=== PATIENT | female | born 2000 | race Caucasian/White ===

== ENCOUNTER 2024-03-25 14:48 | Outpatient (OUT) | payer OTHER, MEDICAID, SELFPAY | END 2024-03-25 14:49 | disposition home or self-care (01) | LOC: LAB 14:54 | PROVIDERS: Visit Provider Midwife | DX: O26.892 Other specified pregnancy related conditions, second trimester (principal); O09.899 Supervision of other high risk pregnancies, unspecified trimester; Z67.91 Unspecified blood type, Rh negative | CPT/HCPCS: 36415; 86850; 86900; 86901 ==

== ENCOUNTER 2024-03-29 13:02 | Outpatient (RCR) | payer OTHER, MEDICAID, SELFPAY ==
[2024-03-29] MEDS: RHO(D) IMMUNE GLOBULIN 1,500 UNIT SYRINGE 1500 UNIT IM (13:14)
[2024-03-29 13:35] VITALS: BP 116/74; PULSE 84; TEMP 36.8; O2SAT 98
--- NOTE | 2024-03-29 13:37 | PC.NURSE ---
1335 no s/s of rxn post injection, 1338 Released ambulatory
== END 2024-04-19 23:59 | disposition home or self-care (01) ==
LOC: INF 13:02
PROVIDERS: Visit Provider Midwife
DX: O26.893 Other specified pregnancy related conditions, third trimester (principal); Z67.91 Unspecified blood type, Rh negative; Z3A.00 Weeks of gestation of pregnancy not specified
CPT/HCPCS: 96372; J2790

== ENCOUNTER 2024-04-26 15:18 | Observation (INO) | payer OTHER, MEDICAID, SELFPAY ==
[2024-04-26 16:13] LABS: Bilirubin Urine NEGATIVE (NEGATIVE); Blood Urine NEGATIVE (NEGATIVE); Clarity Urine CLEAR (CLEAR); Color Urine YELLOW (YELLOW); Glucose Urine UA NEGATIVE (NEGATIVE); Ketones Urine 40 mg/dL (NEGATIVE); Leukocyte Esterase Urine NEGATIVE (NEGATIVE); Nitrite Urine NEGATIVE (NEGATIVE); Protein Urine NEGATIVE (NEG/TRACE); Specific Gravity Urine 1.025 (1.005-1.025); Urobilinogen Urine 0.2 EU/dL (0.2-1.0); pH Urine 6.5 (5.0-9.0)
[2024-04-26 16:14] LABS: Urine Microscopic Indicated NO
[2024-04-26 16:18] LABS: Amnisure NEGATIVE (NEGATIVE); Internal Control Within Normal Limits
[2024-04-26 16:31] VITALS: BP 117/63; PULSE 92; TEMP 36.9
== END 2024-04-26 16:39 | disposition home or self-care (01) ==
LOC: FBC 15:20
PROVIDERS: Admitting Provider Midwife; Visit Provider Midwife
DX: Z03.71 Encounter for suspected problem with amniotic cavity and membrane ruled out (principal); Z3A.00 Weeks of gestation of pregnancy not specified
CPT/HCPCS: 59025; 81003; 84112; G0378; G0379

== ENCOUNTER 2024-05-13 16:50 | Observation (INO) | payer OTHER, MEDICAID, SELFPAY ==
--- OUTSIDE RECORDS SUMMARY | 2024-05-13 17:14 | XMS_ITS | CCD ---
Author Organization [facility] Care Team Providers Care Cashier Credit Name Role Phone JAGDEEP BORRERO Attending Maria Eugenia CAMPBELLLES, JAGDEEP Consulting JAGDEEP Mckeon Admitting Unavailable Floro CNJennifer, Bright L Unavailable Hortencia Morrison MD Primary Care Provider SAMANTA HUERTA Admitting Unavailable SAMANTA HUERTA Attending Unavailable HORTENCIA MORRISON Primary Care Unavailable FLORO, BRIGHT L Attending Unavailable FLORO, BRIGHT L Attending Unavailable FLORO, BRIGHT L Attending Unavailable FLORO, BRIGHT L Attending Unavailable FLORO, BRIGHT L Referring Unavailable FLORO, BRIGHT L Attending Unavailable FLORO, BRIGHT L Referring Unavailable FLORO, BRIGHT L Attending Unavailable FLORO, BRIGHT L Attending Unavailable FLORO, BRIGHT L Attending Unavailable FLORO, BRIGHT L Referring Unavailable FLORO, BRGIHT L Attending Unavailable FLORO, BRIGHT L Attending Unavailable FLORO, BRIGHT L Attending Unavailable FLORO, BRIGHT L Referring Unavailable Allergies Allergy Classification Reported Allergen(s) Allergy Type Date of Onset Reaction(s) Facility (2 sources) Penicillins; Translations: [PENICILLINS] Drug Intolerance 1 [facility] (1 source) Amoxicillin-Pot Clavulanate Drug Allergy 3 Hives [facility] Medications Current Medications Medication Drug Class(es) Dates Sig (Normalized) Sig (Original) Vit-DSS-Fe Cbn-FA ( AD PO) (1 source) Vit-DSS -Fe Cbn-FA ( AD PO) Take by mouth. 0 Active Vit-Fe Fumarate-FA ( Plus/Iron) 27-1 MG tablet (1 source) Start: 12-04-2023 End: 03-03-2024 take 1 tablet by mouth in the morning Vit-Fe Fumarate-FA ( Plus/Iron) 27-1 MG tablet Indications: examination or test, positive result Take 1 tablet by mouth in the morning. 30 tablet 3 12/04/2023 03/03/2024 Active Problems Active Problems Problem Classification Problem Date Documented Da te Episodic/Chronic Anxiety disorders (1 source) Anxiety; Translations: [Anxiety disorder, unspecified] Onset: 09-18-2023 09-18-2023 Chronic Mood disorders (2 sources) Mixed bipolar affective disorder, mild; Translations: [Bipolar disorder, current episode mixed, mild] Onset: 07-19-2023 07-19-2023 Chronic Other nervous system disorders (1 source) Anosmia; Translations: [ANOSMIA] Onset: 03-04-2021 Episodic Other nervous system disorders (1 source) Parageusia; Translations: [PARAGEUSIA] Onset: 03-04-2021 Episodic Other upper respiratory disease (1 source) Nasal congestion; Translations: [NASAL CONGESTION] Onset: 03-04-2021 Episodic Unclassified (3 sources) CONTACT W/AND (SUSP) EXPOS COVID-19; Translations: [CONTACT W/AND (SUSP) EXPOS COVID-19] Onset: 02-26-2021 Unclassified (1 source) COVID-19; Translations: [COVID-19] Onset: 03-04-2021 Unclassified (1 source) OB Reminders Onset: 11-14-2023 11-14-2023 Past or Other Problems Problem Classification Problem Date Documented Da te Episodic/Chronic Other nervous system disorders (1 source) Loss of taste; Translations: [Parageusia] Onset: 09-18-2023 09-18-2023 Episodic Other nervous system disorders (1 source) Loss of sense of smell; Translations: [Anosmia] Onset: 09-18-2023 09-18-2023 Episodic Viral infection (1 source) Verruca plantaris; Translations: [Plantar wart] Onset: 09-18-2023 09-18-2023 Episodic Results Test Name Value Interpretation Reference Range Facil ity US OB FOLLOW UP TRANSABDOMIN AL APPROACHon 04-08-2024 OB FOLLOW UP TRANSABDOMINAL APPROACH FINDINGS: A single, live intrauterine is present with normal cardiac rate of 131 beats per minute. Normal activity and amniotic fluid volume. Amniotic fluid index is 18 cm. Morphology is grossly normal. The cervix is long and closed, 4.6 cm. The placenta is anterior, not associated with the cervical os. The current sonographic age is 31 weeks and 4 days, based on the following measurements: BPD 8.0 cm (32 weeks, 1 day) Head Circumference 28.6 cm (31 weeks, 3 days) Abdominal Circumference 28.1 cm (32 weeks, 1 day) Femur Length 5.9 cm (30 weeks, 5 days) Presentation Cephalic Placenta Anterior Grade I Weight (g) by Percentile 85.8 % * These measurements result in an estimated date of delivery of June 07, 2024. The current estimated weight is 1812 grams (4 pounds, 0 ounces). IMPRESSION: Single, live intrauterine , current sonographic age of 31 weeks and 4 days, with an estimated date of delivery of June 07, 2024 * Estimated Weight (g) by Percentile is based upon an accurate estimated age based on last menstrual period. TRANSCRIBED BY: ELECTRONICALLY SIGNED BY: Samm Pollard MD Normal Not Available US OB 14+ WEEKS ANATOMY SCAN on 01-25-2024 US OB 14+ WEEKS ANATOMY SCAN FINDINGS: Single live intrauterine . heart rate 141 bpm. Somatic movement identified. Breech position. Anterior grade 0 placenta location. GOVIND 14.28 cm. Cervical length 4.3 cm. Lateral ventricles, posterior fossa, stomach, kidneys, three-vessel cord and cord insertion, urinary bladder, long bones, four-chamber heart, diaphragm, extremities, and cervical, thoracic, and lumbar spine identified. Estimated sonographic gestational age 20 weeks, 3 days. Gestational age by dates, 20 weeks, 1 day by dates. Sonographic estimated date of delivery June 10, 2024. Estimated weight 354 g (61.4% by LMP percentile). BPD 4.75 cm. HC 17.77 cm. AC 15.49 cm. FL 3.28 cm. IMPRESSION: Single live intrauterine with estimated sonographic gestational age 20 weeks, 3 days. Estimated weight 334 g. ELECTRONICALLY SIGNED BY: Mike Bustos MD Normal Not Available US OB < 14 WEEKS EARLYon US OB < 14 WEEKS EARLY This is a summary report. The complete report is available in the patient's medical record. If you cannot access the medical record, please contact the sending organization for a detailed fax or copy. US OB < 14 WEEKS EARLY : 11/01/2023 2:51 PM CLINICAL HISTORY: First trimester. COMPARISON: October 11, 2023 TECHNIQUE: ROUTINE FINDINGS: The uterus measures 10.8 x 7.1 x 5.8 cm. A single intrauterine is seen with heart motion of 153 bpm. The gestational age based on this ultrasound is 8 weeks 0 days. The right ovary measures 3.3 x 2.2 x 1.8 cm. The left ovary measures 3.9 x 2.3 x 2.4 cm. IMPRESSION: A SINGLE INTRAUTERINE IS SEEN WITH HEART MOTION. THE GESTATIONAL AGE IS 8 WEEKS 0 DAYS BASED ON THIS EXAMINATION. THE EXPECTED DUE DATE IS JUNE 12, 2024 ELECTRONICALLY SIGNED BY: DO Theron oMrris Not Available US OB < 14 WEEKS EARLYon US OB < 14 WEEKS EARLY CLINICAL HISTORY: COMPARISON: NONE. TECHNIQUE: Grayscale images and Doppler images transabdominal and endovaginal images of the pelvis were obtained in multiple planes. FINDINGS: The uterus measures 8.8 x 4.9 x 3.9 cm there is fluid in the endometrial cavity measuring 1.2 cm which may correspond to a gestational sac, 4 weeks, 1 day. A 2 mm yolk sac is identified. No pole is identified. There is no free fluid. The right ovary measures 3.1 x 2.5 x 1.8 cm The left ovary measures 3.6 x 2.1 x 2.0 cm Both ovaries demonstrate vascular flow. There are no solid or cystic lesions. IMPRESSION: A gestational age in the yolk sac is identified with an approximate gestational age of 4 weeks, 1 day. No pole is identified. ELECTRONICALLY SIGNED BY: Austin Butler MD Normal Not Available Q - CULTURE,URINE,ROUTINEon 01-21-2022 CULTURE, URINE, ROUTINE SEE NOTE Normal [facility] Ramp Manager Comment on above: Order Comment: [facility] performed at: [employer], [facility], [address] [place] [address], [address] [place] [address], [phone], Commercial Carpet Installer: Finesse Santos MD [facility] Date/Time: [id number] [facility] Results Received Date/Time: [id number] [facility] Reported Date/Time: Result Comment: CULT URE, URINE, ROUTINE Micro Number: [id number] Test Status: Final Specimen Source: Urine Specimen Quality: Adequate Result: No Growth Performed By: #### 6 [id number] #### [facility] Default [address] [place] [address] Basic Metabolic Panelon 12-21 Anion gap [Moles/Vol] 12 mmol/L Normal 12-20 [facility] Comment on above: Result Comment: Effe ctive 11/25/2019 reference range changed. Performed By: #### 1 0165F, TSH reflex FT4, BMP #### [facility] [address] [place] [address] eGFRAA 114 mL/min/1.73m2 Normal > OR = 60 [facility] Comment on above: Performed By: #### 1 0165F, TSH reflex FT4, BMP #### [facility] [address] [place] [address] Order Comment: [facility] performed at: [employer] [facility], [address] [place] [address], [address] [place] [address], [phone], Commercial Carpet Installer: Finesse Santos MD [facility] Date/Time: [facility] Results Received Date/Time: [facility] Reported Date/Time: eGFRNAA 94 mL/min/1.73m2 Normal > OR = 60 [facility] Specialist Comment on above: Performed By: #### 1 0165F, TSH reflex FT4, BMP #### [facility] [address] [place] [address] Order Comment: [facility] performed at: [employer] [facility], [address] [facility], [address] [place] [address], [phone], Commercial Carpet Installer: Finesse Santos MD [facility] Date/Time: [facility] Results Received Date/Time: [facility] Reported Date/Time: Q - BASIC METABOLIC PANEL W/ EGFRon 12-31-2021 BUN/CREA 14 NOT APPLICABLE Normal 6-22 [facility] Comment on above: Order Comment: [facility] performed at: [employer], [employer] [facility], [address] , [address] [place] [address], [phone], Commercial Carpet Installer: Finesse Santos MD [facility] Date/Time: [facility] Results Received Date/Time: [facility] Reported Date/Time: Performed By: #### 1 0165F, TSH reflex FT4, BMP #### [facility] [address] [place] [address] Calcium [Mass/Vol] 9.3 mg/dL Normal 8.9-10.4 [facility] Specialist Comment on above: Order Comment: [facility] performed at: [employer], [facility], [address] , [address] [place] [address], [address] [place] [address], Commercial Carpet Installer: Finesse Santos MD [facility] Date/Time: [facility] Received Date/Time: [facility] Reported Date/Time: Performed By: #### 1 0165F, TSH reflex FT4, BMP #### [facility] [address] [place] [address] Chloride [Moles/Vol] 107 mmol/L Normal 98-110 [facility] Specialist Comment on above: Order Comment: [facility] performed at: [employer], [facility], [address] , [address] [place] [address], [phone], Commercial Carpet Installer: Finesse Santos MD [facility] Date/Time: [facility] Received Date/Time: [facility] Reported Date/Time: Performed By: #### 1 0165F, TSH reflex FT4, BMP #### [facility] [address] [place] [address] CO2 [Moles/Vol] 23 mmol/L Normal 20-32 [facility] Ramp Manager Comment on above: Order Comment: [facility] performed at: [employer], [facility], [address] , [address] [place] [address], [phone], Commercial Carpet Installer: Finesse Santos MD [facility] Date/Time: [facility] Results Received Date/Time: [facility] Reported Date/Time: Performed By: #### 1 0165F, TSH reflex FT4, BMP #### [facility] [address] [place] [address] Creatinine [Mass/Vol] 0.79 mg/dL Normal 0.50-1.00 [facility] Ramp Manager Comment on above: Order Comment: [facility] performed at: [employer], [facility], [address] [place] [address], [address] [place] [address], [address] [place] [address], Commercial Carpet Installer: Finesse Santos MD [facility] Date/Time: [facility] Results Received Date/Time: [facility] Reported Date/Time: Performed By: #### 1 0165F, TSH reflex FT4, BMP #### [facility] [address] [place] [address] Glucose [Mass/Vol] 81 mg/dL Normal 65-99 [facility] Comment on above: Order Comment: [facility] performed at: [employer] [facility], [address] [place] [address], [address] [place] [address], [address] [place] [address], Commercial Carpet Installer: Finesse Santos MD [facility] Date/Time: [facility] Results Received Date/Time: [facility] Reported Date/Time: Result Comment: Fasting reference interval Performed By: #### 1 0165F, TSH reflex FT4, BMP #### [facility] [address] [place] [address] Potassium [Moles/Vol] 4.5 mmol/L Normal 3.8-5.1 [facility] Ramp Manager Comment on above: Order Comment: [facility] performed at: [employer] [facility], [address] [place] [address], [address] [place] [address], [address] [place] [address], Commercial Carpet Installer: Finesse Santos MD [facility] Date/Time: [facility] Results Received Date/Time: [facility] Reported Date/Time: Performed By: #### 1 0165F, TSH reflex FT4, BMP #### [facility] [address] [place] [address] Sodium [Moles/Vol] 137 mmol/L Normal 135-146 [facility] Comment on above: Order Comment: [facility] performed at: [employer], [facility], [facility], [address] [place] [address], [address] [place] [address], Commercial Carpet Installer: Finesse Santos MD [facility] Date/Time: [facility] Results Received Date/Time: [facility] Reported Date/Time: Performed By: #### 1 0165F, TSH reflex FT4, BMP #### [facility] [address] [place] [address] Urea nitrogen [Mass/Vol] 11 mg/dL Normal 7-20 [facility] Comment on above: Order Comment: [facility] performed at: [employer], [facility], [address] [facility], [address] [place] [address], [address] [place] [address], Commercial Carpet Installer: Finesse Santos MD [facility] Date/Time: [facility] Results Received Date/Time: [facility] Reported Date/Time: Performed By: #### 1 0165F, TSH reflex FT4, BMP #### [facility] [address] [place] [address] TSH w/ Reflex to Free T4on 0 12-31-2021 TSH W/REFLEX TO FT4 1.03 mIU/L Normal [facility] Comment on above: Order Comment: [facility] performed at: [employer] [facility], [address] [facility], [address] [place] [address], [address] [place] [address], Commercial Carpet Installer: Finesse Satnos MD [facility] Date/Time: [facility] Results Received Date/Time: [facility] Reported Date/Time: Result Comment: Refe rence Range 1-19 Years 0.50-4.30 Ranges First trimester 0.26-2.66 Second trimester 0.55-2.73 Third trimester 0.43-2.91 Performed By: #### 1 0165F, TSH reflex FT4, BMP #### [facility] [address] [place] [address] Q - CULTURE,URINE,ROUTINEon 12-27-2021 CULTURE, URINE, ROUTINE SEE NOTE Abnormal [facility] Ramp Manager Comment on above: Order Comment: [facility] performed at: [employer], [facility], [address], [address] [place], [phone], Commercial Carpet Installer: Finesse Santos MD [facility] Date/Time: [id number] [facility] Results Received Date/Time: [facility] Reported Date/Time: FASTING: NO Result Comment: CULT URE, URINE, ROUTINE Micro Number: [id number] Test Status: Final Specimen Source: Urine Specimen Quality: Adequate Result: Greater than 100,000 CFU/mL of Escherichia coli E.coli INT KENDRICK AMOX/CLAVULANATE S <=2 AMPICILLIN S <=2 AMP/SULBACTAM S <=2 CEFAZOLIN NR <=4 2 CEFEPIME S <=1 CEFTRIAXONE S <=1 CIPROFLOXACIN S <=0.25 ERTAPENEM S <=0.5 GENTAMICIN S <=1 IMIPENEM S <=0.25 LEVOFLOXACIN S <=0.12 NITROFURANTOIN S <=16 PIP/TAZOBACTAM S <=4 TOBRAMYCIN S <=1 TRIMETHOPRIM/SULFA S <=20 S=Susceptible I=Intermediate R=Resistant * = Not Tested NR = Not Reported NN = See Therapy Comments THERAPY COMMENTS Note 1: For infections other than uncomplicated UTI caused by E. coli, K. pneumoniae or P. mirabilis: Cefazolin is resistant if KENDRICK > or = 8 mcg/mL. (Distinguishing susceptible versus intermediate for isolates with KENDRICK < or = 4 mcg/mL requires additional testing.) Note 2: For uncomplicated UTI caused by E. coli, K. pneumoniae or P. mirabilis: Cefazolin is susceptible if KENDRICK <32 mcg/mL and predicts susceptible to the oral agents cefaclor, cefdinir, cefpodoxime, cefprozil, cefuroxime, cephalexin and loracarbef. Performed By: #### 6 [id number] #### [facility] Default [address] [place] [address] Covid-19 PCR (CVDTB)on Covid-19 PCR DETECTED Abnormal NOT DETECTED [facility] Comment on above: Result Comment: This test is not yet approved or cleared by the [place] FDA. When there are no FDA-approved or cleared tests available, and other criteria are met, FDA can make tests available under an emergency access mechanism called an Emergency Use Authorization (EUA). The EUA for this test is supported by the [place] of Health and Human Service's (HHS's) declaration that circumstances exist to justify the emergency use of in vitro diagnostics for the detection and/or diagnosis of the virus that causes COVID-19. This EUA will remain in effect (meaning this test can be used) for the duration of the COVID-19 declaration justifying emergency of IVDs, unless it is terminated or revoked by FDA (after which the test may no longer be used). Performed By: #### C VDTB #### [facility] [address] [place], [place] [address] Mary Jo Medina Encounters Encounter Date Encounter Type Care Provider Facility Start: 05-06-2024 End: 05-06-2024 ambulatory BRIGHT L FLORO Not Available Start: 04-22-2024 End: 04-22-2024 ambulatory BRIGHT L FLORO Not Available Start: 04-08-2024 End: 04-08-2024 ambulatory BRIGHT L FLORO Not Available Start: 03-21-2024 End: 03-21-2024 ambulatory BRIGHT L FLORO Not Available Start: 02-21-2024 End: 02-21-2024 ambulatory BRIGHT L FLORO Not Available Start: 02-16-2024 End: 02-16-[address] [facility] Start: 02-12-2024 End: 02-12-2024 ambulatory BRIGHT L FLORO Not Available Start: 01-25-2024 End: 01-25-2024 ambulatory BRIGHT L FLORO Not Available Start: 12-28-2023 End: 12-28-2023 ambulatory BRIGHT L FLORO Not Available Start: 12-28-2023 Bamboo flowsheet Bright L Benji ro CNM Work Phone: [facility] Start: 12-28-2023 Bamboo flowsheet Bright L Benji ro CNM Work Phone: [facility] Start: 11-30-2023 End: 11-30-2023 ambulatory BRIGHT L FLORO Not Available Start: 11-01-2023 End: 11-01-2023 ambulatory BRIGHT L FLORO Not Available Start: 11-01-2023 End: 11-01-2023 ambulatory BRIGHT L FLORO Not Available Start: 10-11-2023 End: 10-11-2023 ambulatory BRIGHT L FLORO Not Available Start: 02-26-2021 End: 02-26-2021 Patient encounter procedure [facility] Facility: Plan of Treatment Date Care Activity Detail Author Start: 05-19-2024 Influenza vaccination Influenza Vacc ine (#1) [facility] Comment on above: Postponed from 07/21 (Patient Refused) Start: 12-28-2023 End: 12-28-2023 Patient encounter procedure 12/28/2023 4:30 PM EST Routine [facility] [address] [place] [address] Bright Viveros, CNM [address] [place] [address] Arrived [facility] Comment on above: Arrived Immunizations Immunization Date Immunization Notes Care Provider Fa cility 07-08-2020 meningococcal oligosaccharide (groups A, C, Y and W-135) diphtheria toxoid conjugate vaccine (MCV4O) Bright Mineo CN Work Phone: [facility] 07-20-2018 human papilloma viru s vaccine, quadrivalent Bright Floro CNM Work Phone: [facility] 03-14-2018 human papilloma viru s vaccine, quadrivalent Bright Floro CNM Work Phone: [facility] 01-09-2018 human papilloma viru s vaccine, quadrivalent Bright Mineo CN Work Phone: [facility] 06-14-2017 meningococcal polysaccharide (groups A, C, Y and W-135) diphtheria toxoid conjugate vaccine (MCV4P) [facility] 06-14-2017 meningococcal polysaccharide vaccine (MPSV4) Bright [facility] CN Work Phone: [facility] 07-08-2014 meningococcal polysaccharide (groups A, C, Y and W-135) diphtheria toxoid conjugate vaccine (MCV4P) [facility] Work [facility]: [facility] 07-08-2014 tetanus toxoid, redu fabricio diphtheria toxoid, and acellular pertussis vaccine, adsorbed [facility] Work Phone: [facility] 04-22-2013 varicella virus vaccine [place] rocíosandor Blounto [facility] Work Phone: [facility] 02-26-2008 diphtheria, tetanus toxoids and acellular pertussis vaccine Bright Mineo CN Work Phone: [facility] 02-26-2008 measles, mumps and r ubella virus vaccine Bright Mineo CN Work Phone: [facility] 02-26-2008 poliovirus vaccine, inactivated [facility] Work Phone: [facility] 04-12-2004 diphtheria, tetanus toxoids and acellular pertussis vaccine, unspecified formulation Bright Mineo CN Work Phone: [facility] 01-13-2004 measles, mumps and r ubella virus vaccine Bright Floro CN Work Phone: [facility] 01-13-2004 varicella virus vaccine Ana M rocío Mineo CN Work Phone: [facility] 10-14-2003 haemophilus influenz ae type b vaccine, HbOC conjugate Bright [facility] Work Phone: [facility] 10-14-2003 pneumococcal conjuga te vaccine, 7 valent Bright Floro CNM Work Phone: [facility] 10-14-2003 poliovirus vaccine, inactivated Bright Floro CNM Work Phone: [facility] 07-16-2003 hepatitis B vaccine, pediatric or pediatric/adolescent dosage Bright Floro CNM Work Phone: [facility] 05-27-2003 diphtheria, tetanus toxoids and acellular pertussis vaccine, unspecified formulation Bright Floro CNM Work Phone: [facility] 05-27-2003 haemophilus influenz ae type b vaccine, HbOC conjugate Bright Floro CNM Work Phone: [facility] 05-27-2003 pneumococcal conjuga te vaccine, 7 valent Bright Floro CNM Work Phone: [facility] 02-17-2003 diphtheria, tetanus toxoids and acellular pertussis vaccine, unspecified formulation Bright Floro CNM Work Phone: [facility] 02-17-2003 haemophilus influenz ae type b vaccine, HbOC conjugate Bright Floro CNM Work Phone: [facility] 02-17-2003 pneumococcal conjuga te vaccine, 7 valent Bright Floro CNM Work Phone: [facility] 02-17-2003 poliovirus vaccine, inactivated Bright Floro CNM Work Phone: [facility] 2002 diphtheria, tetanus toxoids and acellular pertussis vaccine, unspecified formulation Bright Floro CNM Work Phone: [facility] 2002 haemophilus influenz ae type b vaccine, HbOC conjugate Bright Floro CNM Work Phone: [facility] 2002 pneumococcal conjuga te vaccine, 7 valent Bright Floro CNM Work Phone: [facility] 2002 poliovirus vaccine, inactivated Bright Floro CNM Work Phone: [facility] 2002 hepatitis B vaccine, pediatric or pediatric/adolescent dosage Bright Floro CNM Work Phone: [facility] Healthcare 2002 hepatitis B vaccine, pediatric or pediatric/adolescent dosage Bright Floro CNM Work Phone: [facility] Healthcare Payers Date Payer Category Payer Medicaid [id number] 2019 Private Health Insurance [facility] [id number] 2019-Present [address] [address] [place] [address] [id number] 2002 Unknown [id number] 2002 Unknown [id number] 2002 Unknown [id number] 2002 Unknown [id number] 2.16.840.1.848873.3.579.2. 1259 2002 Unknown [id number] 2.16.840.1.409857.3.579.2. 1259 2002 Unknown [id number] 2.16.840.1.165227.3.579.2. 1259 2002 Unknown [id number] 2.16.840.1.562063.3.579.2. 1259 2002 Unknown [id number] 2.16.840.1.596870.3.579.2. 1259 2002 Unknown [id number] 2.16.840.1.832731.3.579.2. 1259 2002 Unknown [id number] 2.16.840.1.176041.3.579.2. 1259 2002 Unknown [id number] 2.16.840.1.225199.3.579.2. 1259 2002 Unknown [id number] 2.16.840.1.610387.3.579.2. 1259 2002 Unknown [id number] 2.16.840.1.575836.3.579.2. 1259 2002 Unknown [id number] 2.16.840.1.116615.3.579.2. 1259 2002 Unknown [id number] 2.16.840.1.439641.3.579.2. 1259 2002 Unknown [id number] 2.16.840.1.397365.3.579.2. 1259 2002 Unknown [id number] 2.16.840.1.729401.3.579.2. 1259 1959 Unknown [id number] Social History Date Type Detail Facility Start: 10-11-2023 Tobacco smoking stat [facility] Smokes tobacco daily [facility] History of tobacco use Cigarette Smoker [facility] Start: 10-11-2023 Tobacco use and exposure Smokeless t obacco non-user [facility] Start: 10-11-2023 Alcohol intake Ex-drinker (finding) [facility] Start: 09-18-2023 End: 10-11-2023 Alcohol intake [facility] Start: 09-18-2023 End: 10-11-2023 Tobacco use panel [facility] Start: 05-21-2023 Tobacco Comment *Current Smoker [facility] Start: 05-21-2023 Alcohol Comment Alcohol: 3 or 4 drinks on typical day/monthly or less. Caffeine: 1-2 cups/day coffee [facility] Start: 09-20-2023 [facility] Start: 2002 Sex Assigned At Not on file [facility] Goals Date Patient Goal Desired Activity /State Personal health goal Summary Purpose Family History No Family History Records FoundNo Family History Records FoundNo Family History Records FoundNo Family History Records Found Advance Directives No Advanced Directives Records FoundNo Advanced Directives Records FoundNo Advanced Directives Records FoundNo Advanced Directives Records Found Additional Source Comments INFORMATION SOURCE (unrecogn ized section and content) DATE CREATED AUTHOR 03/05/2021 Juan Alberto Rodriguesue [facility] pital DATE CREATED AUTHOR AUTHOR'S ORGANIZ ATION 01/23/2022 [facility] dical Specialist DATE CREATED AUTHOR AUTHOR'S ORGANIZ ATION 02/17/2024 [facility] DATE CREATED AUTHOR AUTHOR'S ORGANIZ ATION 05/11/2024 [facility] dical Specialists EP[employer] Care Teams (unrecognized sec tion and content) Cashier Credit Relationship Specialty Start Date End Date Hortencia Morrison MD [address] [place] [address] PCP - General Family Medicine 05/24/23 Bright Viveros CNM [address] [place], [place] [id number] Obstetrics and Gynecology 05/24/23 FOR RECORDS PERTAINING TO PATIENTS WHO ARE OR HAVE BEEN ENROLLED IN A CHEMICAL DEPENDENCY/SUBSTANCEABUSE PROGRAM, SOME INFORMATION MAY BE OMITTED. This clinical summary was aggregated from multiple sources. Caution should be exercised in using it in the provision of clinical care. This summary normalizes information from multiple sources, and as a consequence, information in this document may materially change the coding, format and clinical context of patient data. In addition, data may be omitted in some cases. CLINICAL DECISIONS SHOULD BE BASED ON THE PRIMARY CLINICAL RECORDS. [facility] [employer] [facility]. provides no warranty or guarantee of the accuracy or completeness of information in this document.
[2024-05-13 17:22] VITALS: BP 139/85; PULSE 73
[2024-05-13 17:46] VITALS: BP 134/84; PULSE 96
[2024-05-13 18:00] VITALS: BP 137/81; PULSE 82
[2024-05-13 18:14] VITALS: BP 139/82; PULSE 88
--- NOTE | 2024-05-13 19:01 | PC.NURSE ---
voices no further complaints, awaiting plan of care from Alie Viveros, continues to deny headache or spotty vision
--- NOTE | 2024-05-13 19:36 | PC.NURSE ---
Alie Viveros in and talks with pt and family, given dc instructions and work release
== END 2024-05-13 19:37 | disposition home or self-care (01) ==
PROVIDERS: Admitting Provider Midwife; Visit Provider Midwife
DX: O47.03 False labor before 37 completed weeks of gestation, third trimester (principal); Z3A.35 35 weeks gestation of pregnancy
CPT/HCPCS: 59025; 87081; G0378; G0379

== ENCOUNTER 2024-05-20 21:55 | Observation (INO) | payer OTHER, MEDICAID, SELFPAY ==
[2024-05-20] VITALS (9 sets, daily range): BP systolic 146–187; BP diastolic 84–98; PULSE 81–104; TEMP 36.3
--- OUTSIDE RECORDS SUMMARY | 2024-05-20 22:00 | XMS_ITS | CCD ---
Author Organization [facility] Care Team Providers Care Tight Barrel Inspector Name Role Phone JAGDEEP BORRERO Attending Maria Eugenia CAMPBELLLES, JAGDEEP Consulting JAGDEEP Mckeon Admitting Unavailable Floro CNJennifer, Teodora L Unavailable [phone] Hortencia Morrison MD Primary Care Provider SAMANTA HUERTA Admitting Unavailable SAMANTA HUERTA Attending Unavailable HORTENCIA MORRISON Primary Care Unavailable FLORO, TEODORA L Attending Unavailable FLORO, TEODORA L Attending Unavailable FLORO, TEODORA L Attending Unavailable FLORO, TEODORA L Attending Unavailable FLORO, TEODORA L Referring Unavailable FLORO, TEODORA L Attending Unavailable FLORO, TEODORA L Referring Unavailable FLORO, TEODORA L Attending Unavailable FLORO, TEODORA L Attending Unavailable FLORO, TEODORA L Referring Unavailable FLORO, TEODORA L Attending Unavailable FLORO, TEODORA L Attending Unavailable FLORO, TEODORA L Attending Unavailable FLORO, TEODORA L Attending Unavailable FLORO, TEODORA L Attending Unavailable FLORO, TEODORA L Referring Unavailable Allergies Allergy Classification Reported [...] OB FOLLOW UP TRANSABDOMIN AL APPROACHon 04-08-2024 US OB FOLLOW UP TRANSABDOMINAL APPROACH FINDINGS: A [...] 12, 2024 ELECTRONICALLY SIGNED BY: DO Theron Morris Not Available US OB < 14 WEEKS [...] 01-21-2022 CULTURE, URINE, ROUTINE SEE NOTE Normal [facility] Comment on above: Order Comment: [facility] Testing performed at: QPT, [facility], [address] [place] [address], [address] [place] [address], [phone], Cover Seamer: Finesse Santos MD [facility] Collection Date/Time: [id number] [facility] Results Received Date/Time: [id number] [facility] Reported Date/Time: Result Comment: CULT URE, URINE, ROUTINE Micro Number: [id number] Test Status: Final Specimen Source: Urine Specimen Quality: Adequate Result: No Growth Performed By: #### 6 [id number] #### [facility] Default [address] [place] [address] Basic Metabolic Panelon 12-21 Anion gap [Moles/Vol] 12 mmol/L Normal 12-20 [facility] Comment on above: Result Comment: Effe ctive 11/25/2019 reference range changed. Performed By: #### 1 0165F, TSH reflex FT4, BMP #### [facility] Default [address] [place] [address] eGFRAA 114 mL/min/1.73m2 Normal > OR = 60 [facility] Comment on above: Performed By: #### 1 0165F, TSH reflex FT4, BMP #### [facility] Default [address] [place] [address] Order Comment: [facility] performed at: [facility], [address] [facility], [address] [place] [address], [phone], Cover Seamer: Finesse Santos MD [facility] Collection Date/Time: [facility] Results Received Date/Time: [facility] Reported Date/Time: eGFRNAA 94 mL/min/1.73m2 Normal > OR = 60 [facility] Comment on above: Performed By: #### 1 0165F, TSH reflex FT4, BMP #### [facility] Default [address] [place] [address] Order Comment: [facility] performed at: [employer], [facility], [address] [facility], [address] [place] [address], [phone], Cover Seamer: Finesse Santos MD [facility] Collection Date/Time: [facility] Results Received Date/Time: [facility] Reported Date/Time: Q - BASIC METABOLIC PANEL W/ EGFRon 12-31-2021 BUN/CREA 14 NOT APPLICABLE Normal 6-22 [facility] Comment on above: Order Comment: [facility] performed at: [employer], [facility], [address] [facility] , [address] [place] [address], [address] [place] [address], Cover Seamer: Finesse Santos MD [facility] Collection Date/Time: [facility] Results Received Date/Time: [facility] Reported Date/Time: Performed By: #### 1 0165F, TSH reflex FT4, BMP #### [facility] Default [address] [place] [address] Calcium [Mass/Vol] 9.3 mg/dL Normal 8.9-10.4 [facility] Specialist Comment on above: Order Comment: [facility] performed at: [employer], [facility], [address] [facility] , [address] [place] [address], [address] [place] [address], Cover Seamer: Finesse Santos MD [facility] Collection Date/Time: [facility] Results Received Date/Time: [facility] Reported Date/Time: Performed By: #### 1 0165F, TSH reflex FT4, BMP #### [facility] Default [address] [place] [address] Chloride [Moles/Vol] 107 mmol/L Normal 98-110 [facility] Specialist Comment on above: Order Comment: [facility] performed at: [employer], [facility], [address] [facility] , [address] [place] [address], [phone], Cover Seamer: Finesse Santos MD [facility] Collection Date/Time: [facility] Results Received Date/Time: [facility] Reported Date/Time: Performed By: #### 1 0165F, TSH reflex FT4, BMP #### [facility] Default [address] [place] [address] CO2 [Moles/Vol] 23 mmol/L Normal 20-32 [facility] Comment on above: Order Comment: [facility] performed at: [employer], [facility], [address] [facility] , [address] [place] [address], [address] [place] [address], Cover Seamer: Finesse Santos MD [facility] Collection Date/Time: [facility] Results Received Date/Time: [facility] Reported Date/Time: Performed By: #### 1 0165F, TSH reflex FT4, BMP #### [facility] Default [address] [place] [address] Creatinine [Mass/Vol] 0.79 mg/dL Normal 0.50-1.00 [facility] Comment on above: Order Comment: [facility] performed at: [employer], [facility], [address] [place] [address], [address] [place] [address], [address] [place] [address], Cover Seamer: Finesse Santos MD [facility] Collection Date/Time: [facility] Results Received Date/Time: [facility] Reported Date/Time: Performed By: #### 1 0165F, TSH reflex FT4, BMP #### [facility] Default [address] [place] [address] Glucose [Mass/Vol] 81 mg/dL Normal 65-99 [facility] Comment on above: Order Comment: [facility] performed at: [employer], [facility], [address] [place] [address], [address] [place] [address], [address] [place] [address], Cover Seamer: Finesse Santos MD [facility] Collection Date/Time: [facility] Results Received Date/Time: [facility] Reported Date/Time: Result Comment: Fasting reference interval Performed By: #### 1 0165F, TSH reflex FT4, BMP #### [facility] Default [address] [place] [address] Potassium [Moles/Vol] 4.5 mmol/L Normal 3.8-5.1 [facility] Comment on above: Order Comment: [facility] performed at: [employer], [facility], [address] [facility], [address] [place] [address], [address] [place] [address], Cover Seamer: Finesse Santos MD [facility] Collection Date/Time: [facility] Results Received Date/Time: [facility] Reported Date/Time: Performed By: #### 1 0165F, TSH reflex FT4, BMP #### [facility] Default [address] [place] [address] Sodium [Moles/Vol] 137 mmol/L Normal 135-146 [facility] Comment on above: Order Comment: [facility] performed at: [employer], [facility], [address] [facility], [address] [place] [address], [address] [place] [address], Cover Seamer: Finesse Santos MD [facility] Collection Date/Time: [facility] Results Received Date/Time: [facility] Reported Date/Time: Performed By: #### 1 0165F, TSH reflex FT4, BMP #### [facility] Default [address] [place] [address] Urea nitrogen [Mass/Vol] 11 mg/dL Normal 7-20 [facility] Comment on above: Order Comment: [facility] performed at: [facility], [address] [facility], [address] [place] [address], [address] [place] [address], Cover Seamer: Finesse Santos MD [facility] Collection Date/Time: [facility] Results Received Date/Time: [facility] Reported Date/Time: Performed By: #### 1 0165F, TSH reflex FT4, BMP #### [facility] Default [address] [place] [address] TSH w/ Reflex to Free T4on 0 12-31-2021 TSH W/REFLEX TO FT4 1.03 mIU/L Normal [facility] Comment on above: Order Comment: [facility] Testing performed at: [facility], [address] [facility], [address] [place] [address], [address] [place] [address], Cover Seamer: Finesse Santos MD [facility] Collection Date/Time: [facility] Results Received Date/Time: [facility] Reported Date/Time: Result Comment: Refe rence Range 1-19 Years 0.50-4.30 Ranges First trimester 0.26-2.66 Second trimester 0.55-2.73 Third trimester 0.43-2.91 Performed By: #### 1 0165F, TSH reflex FT4, BMP #### [facility] Default [address] [place] [address] Q - CULTURE,URINE,ROUTINEon 12-27-2021 CULTURE, URINE, ROUTINE SEE NOTE Abnormal [facility] Comment on above: Order Comment: [facility] performed at: [employer], [facility], [address] [facility], [address] [place], [address], Cover Seamer: Finesse Santos MD [facility] Collection Date/Time: [id number] [facility] Results Received Date/Time: [facility] Reported Date/Time: FASTING: NO Result Comment: CULT URE, URINE, ROUTINE Micro Number: [id number] Test Status: Final Specimen Source: Urine Specimen [...] 6 304R #### [facility] Default [address] [facility] [place] [address] Covid-19 PCR (CVDTB)on Covid-19 PCR DETECTED Abnormal NOT DETECTED [facility] Comment on above: Result Comment: This test is not yet approved or cleared by the [place] FDA. When there are no FDA-approved or cleared tests available, and other criteria are met, FDA can make tests available under an emergency access mechanism called an Emergency Use Authorization (EUA). The EUA for this test is supported by the [place] of Health and Human Service's (HHS's) declaration [...] used). Performed By: #### C VDTB #### [facility] [address] [address] Mary Jo Medina Encounters Encounter Date Encounter Type Care Provider Facility Start: 05-13-2024 End: 05-13-2024 ambulatory TEODORA L FLORO Not Available Start: 05-06-2024 End: 05-06-2024 ambulatory TEODORA L FLORO Not Available Start: 04-22-2024 End: 04-22-2024 ambulatory TEODORA L FLORO Not Available Start: 04-08-2024 End: 04-08-2024 ambulatory TEODORA L FLORO Not Available Start: 03-21-2024 End: 03-21-2024 ambulatory TEODORA L FLORO Not Available Start: 02-21-2024 End: 02-21-2024 ambulatory TEODORA L FLORO Not Available Start: 02-16-2024 End: 02-16-2024 ambulatory [facility] Start: 02-12-2024 End: 02-12-2024 ambulatory TEODORA L FLORO Not Available Start: 01-25-2024 End: 01-25-2024 ambulatory TEODORA L FLORO Not Available Start: 12-28-2023 End: 12-28-2023 ambulatory TEODORA L FLORO Not Available Start: 12-28-2023 Bamboo flowsheet Teodora L Benji ro CNM Work Phone: [facility] Start: 12-28-2023 Bamboo flowsheet Teodora L Benji ro CNM Work Phone: [facility] Start: 11-30-2023 End: 11-30-2023 ambulatory TEODORA L FLORO Not Available Start: 11-01-2023 End: 11-01-2023 ambulatory TEODORA L FLORO Not Available Start: 11-01-2023 End: 11-01-2023 ambulatory TEODORA L FLORO Not Available Start: 10-11-2023 End: 10-11-2023 ambulatory TEODORA L FLORO Not Available Start: 02-26-2021 End: 02-26-2021 Patient encounter procedure [facility] Facility: Plan of Treatment Date Care Activity Detail Author Start: 05-19-2024 Influenza vaccination Influenza Vacc ine (#1) [facility] Comment on above: Postponed from 07/21 (Patient Refused) Start: 12-28-2023 End: 12-28-2023 Patient encounter procedure 12/28/2023 4:30 PM EST Routine [facility] [address] [place] [address] Teodora Viveros CNM [address] [place] [address] Arrived [facility] Comment on above: Arrived Immunizations Immunization Date Immunization Notes Care Provider Fa cility 07-08-2020 meningococcal oligosaccharide (groups A, C, Y and W-135) diphtheria toxoid conjugate vaccine (MCV4O) Teodora Jackeline [facility] Work Phone: [facility] 07-20-2018 human papilloma viru s vaccine, quadrivalent Teodora Jackeline [facility] Work Phone: [facility] 03-14-2018 human papilloma viru s vaccine, quadrivalent Teodora Floro CNM Work Phone: [facility] 01-09-2018 human papilloma viru s vaccine, quadrivalent Teodora Floro CNM Work Phone: [facility] 06-14-2017 meningococcal polysaccharide (groups A, C, Y and W-135) diphtheria toxoid conjugate vaccine (MCV4P) Teodora Floro CNM Work Phone: [facility] 06-14-2017 meningococcal polysaccharide vaccine (MPSV4) Teodora Floro CNM Work Phone: [facility] 07-08-2014 meningococcal polysaccharide (groups A, C, Y and W-135) diphtheria toxoid conjugate vaccine (MCV4P) Teodora Floro CN Work Phone: [facility] 07-08-2014 tetanus toxoid, redu fabricio diphtheria toxoid, and acellular pertussis vaccine, adsorbed Teodora Floro CNM Work Phone: [facility] 04-22-2013 varicella virus vaccine [place] rocío Floro CN Work Phone: [facility] 02-26-2008 diphtheria, tetanus toxoids and acellular pertussis vaccine Teodora Floro CNM Work Phone: [facility] 02-26-2008 measles, mumps and r ubella virus vaccine Teodora Floro CNM Work Phone: [facility] 02-26-2008 poliovirus vaccine, inactivated Teodora Floro CNM Work Phone: [facility] 04-12-2004 diphtheria, tetanus toxoids and acellular pertussis vaccine, unspecified formulation Teodora Floro CNM Work Phone: [facility] 01-13-2004 measles, mumps and r ubella virus vaccine Teodora Floro CNM Work Phone: [facility] 01-13-2004 varicella virus vaccine [place] rocío Floro CNM Work Phone: [facility] 10-14-2003 haemophilus influenz ae type b vaccine, HbOC conjugate Teodora Floro CNM Work Phone: [facility] 10-14-2003 pneumococcal conjuga te vaccine, 7 valent Teodora Floro CNM Work Phone: [facility] 10-14-2003 poliovirus vaccine, inactivated Teodora Floro CNM Work Phone: [facility] 07-16-2003 hepatitis B vaccine, pediatric or pediatric/adolescent dosage Teodora Floro CNM Work Phone: [facility] 05-27-2003 diphtheria, tetanus toxoids and acellular pertussis vaccine, unspecified formulation Teodora Floro CNM Work Phone: [facility] 05-27-2003 haemophilus influenz ae type b vaccine, HbOC conjugate Teodora Floro CNM Work Phone: [facility] 05-27-2003 pneumococcal conjuga te vaccine, 7 valent Teodora Floro CNM Work Phone: [facility] 02-17-2003 diphtheria, tetanus toxoids and acellular pertussis vaccine, unspecified formulation Teodora Floro CNM Work Phone: [facility] 02-17-2003 haemophilus influenz ae type b vaccine, HbOC conjugate Teodora Floro CNM Work Phone: [facility] 02-17-2003 pneumococcal conjuga te vaccine, 7 valent Teodora Floro CNM Work Phone: [facility] 02-17-2003 poliovirus vaccine, inactivated Teodora Floro CNM Work Phone: [facility] 2002 diphtheria, tetanus toxoids and acellular pertussis vaccine, unspecified formulation Teodora Floro CNM Work Phone: [facility] 2002 haemophilus influenz ae type b vaccine, HbOC conjugate Teodora Floro CNM Work Phone: [facility] 2002 pneumococcal conjuga te vaccine, 7 valent Teodora Floro CNM Work Phone: [facility] 2002 poliovirus vaccine, inactivated Teodora Floro CNM Work Phone: [facility] 2002 hepatitis B vaccine, pediatric or pediatric/adolescent dosage Teodora Mineo CNM Work Phone: [facility] 2002 hepatitis B vaccine, pediatric or pediatric/adolescent dosage Teodora Floro CNM Work Phone: [facility] Payers Date Payer Category Payer Medicaid [id number] [address] [facility] [id number] 2019-Present [address] [address] [place] [address] [id number] 2002 Unknown [id number] 2.16.840.1.324756.3.579.2. 593 2002 Unknown [id number] 2.16.840.1.579561.3.579.2. 1286 2002 Unknown [id number] 2.16.840.1.465064.3.579.2. 1259 2002 Unknown [id number] 2.16.840.1.132168.3.579.2. 1259 2002 Unknown [id number] 2.16.840.1.128679.3.579.2. 1259 2002 Unknown [id number] 2.16.840.1.320084.3.579.2. 1259 2002 Unknown [id number] 2.16.840.1.793286.3.579.2. 1259 2002 Unknown [id number] 2.16.840.1.439583.3.579.2. 1259 2002 Unknown [id number] 2.16.840.1.530326.3.579.2. 1259 2002 Unknown [id number] 2.16.840.1.365375.3.579.2. 1259 2002 Unknown [id number] 2.16.840.1.924975.3.579.2. 9 2002 Unknown [id number] 2.16.840.1.749877.3.579.2. 9 2002 Unknown [id number] 2.16.840.1.256818.3.579.2. 9 2002 Unknown [id number] 2.16.840.1.140978.3.579.2. 9 2002 Unknown [id number] 2.16.840.1.184555.3.579.2. 9 2002 Unknown [id number] 2.16.840.1.278071.3.579.2. 9 2002 Unknown [id number] 2.16.840.1.759457.3.579.2. 9 2002 Unknown [id number] 2.16.840.1.273498.3.579.2. 1259 1959 Unknown [id number] Social History Date Type Detail Facility Start: 10-11-2023 Tobacco smoking stat [facility] Smokes tobacco daily [facility] History of [...] section and content) DATE CREATED AUTHOR 03/05/2021 [facility] DATE CREATED AUTHOR AUTHOR'S ORGANIZ ATION 01/23/2022 [facility] dical Specialist DATE CREATED AUTHOR AUTHOR'S ORGANIZ ATION 02/17/2024 [facility] DATE CREATED AUTHOR AUTHOR'S ORGANIZ ATION 05/18/2024 [facility] dical Specialists [employer] Care Teams (unrecognized sec tion and content) Tight Barrel Inspector Relationship Specialty Start Date End Date Hortencia Morrison MD [address] [place] [address] PCP - General Family Medicine 05/24/23 Teodora Viveros CNM [address] [place] [address] Obstetrics and Gynecology 05/24/23 FOR RECORDS PERTAINING [...] BE BASED ON THE PRIMARY CLINICAL RECORDS. [facility] [employer] [facility]. provides no warranty or guarantee of the accuracy or completeness of information in this document.
[2024-05-20 22:24] LABS: Bilirubin Urine NEGATIVE (NEGATIVE); Blood Urine TRACE-I (NEGATIVE); Clarity Urine CLEAR (CLEAR); Color Urine LT. YELLOW (YELLOW); Glucose Urine UA NEGATIVE (NEGATIVE); Ketones Urine NEGATIVE (NEGATIVE); Leukocyte Esterase Urine NEGATIVE (NEGATIVE); Nitrite Urine NEGATIVE (NEGATIVE); Protein Urine >=300 mg/dL (NEG/TRACE); Urobilinogen Urine 0.2 EU/dL (0.2-1.0)
[2024-05-20 22:30] LABS: Amnisure NEGATIVE (NEGATIVE); Internal Control Within Normal Limits
[2024-05-20 22:33] LABS: Urine Microscopic Indicated YES
[2024-05-20 22:35] LABS: RBC Urine 0-2 #/HPF (0-2); WBC Urine 0-2 #/HPF (NONE SEEN)
[2024-05-20 22:36] LABS: Amorphous Sediment Urine FEW; Bacteria Urine TRACE #/HPF (NONE SEEN); Cast Seen? NONE SEEN #/LPF (NONE SEEN); Crystals Seen? None Seen #/HPF (None Seen); Mucus Urine NONE SEEN (NONE SEEN); Squamous Epithelial Cell Urine MODERATE #/LPF (NONE/RARE); Urine Culture Indicated NO
[2024-05-20 23:18] LABS: Basophils Absolute Auto 0.1 10^3/uL (0.0-0.1); Basophils Percent Auto 0.5 % (0.2-2.0); Eosinophils Absolute Auto 0.1 10^3/uL (0.0-0.7); Eosinophils Percent Auto 1.5 % (0.9-7.0); Hematocrit 30.1 % (36.0-48.0); Hemoglobin 10.6 g/dL (12.0-16.0); Immature Granulocytes Abs Auto 0.23 10^3/uL (0.00-0.03); Immature Granulocytes Pct Auto 2.4 % (0.0-0.5); Lymphocytes Absolute Auto 1.5 10^3/uL (1.2-3.8); Lymphocytes Percent Auto 15.4 % (20.5-60.0); Mean Corpuscular HGB Conc 35.2 g/dL (29.9-35.2); Mean Corpuscular Hemoglobin 33.5 pg (26.7-34.0); Mean Corpuscular Volume 95.3 fL (81.0-99.0); Mean Platelet Volume 9.5 fL (9.5-13.5); Monocytes Absolute Auto 0.8 10^3/uL (0.3-0.8); Monocytes Percent Auto 8.1 % (1.7-12.0); Neutrophils Absolute Auto 6.9 10^3/uL (1.4-6.5); Neutrophils Percent Auto 72.1 % (43.0-75.0); Platelet Count 209 10^3/uL (150-450); Red Blood Count 3.16 10^6/uL (4.20-5.40); Red Cell Distribution Width 13.5 % (11.0-15.0); White Blood Count 9.6 10^3/uL (4.0-11.0)
[2024-05-20 23:20] LABS: Creatinine Urine Random 33.93 mg/dL (20.00-300.00); Total Protein Urine Random 189.9 mg/dL (<=11.9)
[2024-05-20] MEDS: LABETALOL HCL 20 MG/4 ML SYRINGE IVP (23:32)
[2024-05-20 23:33] LABS: Alanine Aminotransferase 16 U/L (14-59); Aspartate Amino Transferase 19 U/L (15-37); Estimated GFR (African America >60 (>=60); Estimated GFR (Non-African Ame >60 (>=60); Uric Acid 3.5 mg/dL (2.6-6.0)
[2024-05-20 23:36] LABS: Alanine Aminotransferase 17 U/L (14-59); Albumin Globulin Ratio 0.6; Albumin Level 2.2 g/dL (3.4-5.0); Alkaline Phosphatase 114 U/L (46-116); Anion Gap 13.3; Aspartate Amino Transferase 20 U/L (15-37); Bilirubin Total 0.5 mg/dL (0.2-1.0); Calcium 8.8 mg/dL (8.5-10.1); Carbon Dioxide 24.5 mmol/L (21.0-32.0); Chloride 104 mmol/L (98-107); Estimated GFR (African America >60 (>=60); Estimated GFR (Non-African Ame >60 (>=60); Globulin 3.9 g/dL; Glucose 93 mg/dL (74-106); Lactate Dehydrogenase 202 U/L (81-234); Potassium 3.8 mmol/L (3.5-5.1); Sodium 138 mmol/L (136-145); Total Protein 6.1 g/dL (6.4-8.2)
[2024-05-20] MEDS: LABETALOL HCL 20 MG/4 ML SYRINGE 40 MG IVP (23:49)
[2024-05-20 23:52] LABS: Partial Thromboplastin Time 26.9 sec (22.3-36.2); Prothrombin Time 9.7 sec (9.0-11.6)
[2024-05-20 23:58] LABS: INR <0.93
[2024-05-20] MEDS: CLINDAMYCIN PHOSPHATE/D5W 900 MG/50 ML PIGGYBACK 100 MG IV (23:58)
[2024-05-21] VITALS (15 sets, daily range): BP systolic 141–157; BP diastolic 74–92; PULSE 88–103; TEMP 36–36.4
[2024-05-21] MEDS: BETAMETHASONE ACE/BETAMETHASONE SOD PHOS 30 MG/5 ML 12 MG IM (00:04)
[2024-05-21] MEDS: MAGNESIUM SULFATE IN WATER 40 GM/1,000 ML IV.SOLN IV (00:27)
[2024-05-21] MEDS: 0.9 % SODIUM CHLORIDE 1,000 ML 75 ML IV (00:27)
[2024-05-21] MEDS: NIFEdipine 30 MG TAB.ER.24 PO (00:44)
[2024-05-21 00:49] LABS: Fibrinogen 537 mg/dL (200-400)
--- NOTE | 2024-05-21 01:33 | P.EN_ITS ---
Event Note Event Note: patient arrived at hospital with c/o i think my water broke. Upon guidance services coordinator, patients blood pressure was 166/91, 187/98. Orders given to RN and can repeat BP in 5 mins and call me back. When she called me back blood pressures were still elevated. I gave orders for IV, labs, to begin magnesium sulfate drip, antibiotics, and Celestone. I told RN i would be on my way in and posibly transfer patient to [facility] due to preeclampsia with severe features. I also spoke with Dr Lux and report given and he agrees with plan of care to call [facility] and transfer patient to [facility] due to preeclampsia and gestational age. When I arrived at hospital, magnesium 6 gm bolus was infusing, antibiotic infusing without difficuly. Plan of care explained to patient and her mother and patient is tearful. support given. Patient does understand the plan of care and does agree to the transfer. 0015 I called [facility] and spoke with M contract associate manager Dr Murphy and she agrees to accept patient as a transfer. Report given to transport team. At this time she gave me an ETA of approximately 3-4:00 am Patient is stable at this time and blood pressure has decreased to 140's/80's Patient also received Procardia XL 30 mg po as per Dr Murphy order.
--- NOTE | 2024-05-21 02:04 | PC.NURSE ---
Pt arrives to [facility] complaining of feeling a large gush of fluid at 5 this evening. Pt continues to state she has felt fluid since initial gush of fluid. Pt denies cxt's, recent sexual intercourse,and vaginal bleeding. Pt denies complications with this and reports vertex position of fetus and anterior placenta; denies abnormalities. Pt also states she hasn't been feeling the best lately; pt cough intermittent and nasal congestion noted. Pt reports active movement. Pt given a urine specimen cup for sample.
== END 2024-05-21 05:10 | disposition short-term general hospital (02) ==
PROVIDERS: Admitting Provider Midwife; PCP Family Medicine; Visit Provider Midwife
DX: O14.13 Severe pre-eclampsia, third trimester (principal); Z3A.36 36 weeks gestation of pregnancy
CPT/HCPCS: 36415; 51702; 59025; 80053; 81001; 82565; 82570; 83615; 84112; 84156; 84450; 84460; 84550; 85025; 85384; 85610; 85730; 96365; 96372; 96375; 96376; G0378; G0379; J0702; J0736; J1290; J3475

== ENCOUNTER 2024-06-13 01:28 | Emergency (ER) | payer OTHER, MEDICAID, SELFPAY ==
[2024-06-13 01:33] VITALS: BP 123/80; PULSE 88; TEMP 36.4; O2SAT 97; BMI 30.9
--- OUTSIDE RECORDS SUMMARY | 2024-06-13 01:45 | XMS_ITS | CCD ---
Author Organization [facility] Care Team Providers Care Terminologist Name Role Phone JAGDEEP BORRERO Attending Unavailable JAGDEEP BORRERO Consulting Unavailable JAGDEEP BORRERO Admitting Unavailable Floro Alie COLLINSerie L Unavailable Hortencia Morrison MD Primary Care Provider SAMANTA HUERTA Admitting Unavailable SAMANTA HUERTA Attending Unavailable HORTENCIA MORRISON. Primary Care Unavailable FABIANVIRGINIA Admitting Unavailable FABIANVIRGINIA Attending Unavailable FLORO, BRIGHT Referring Unavailable HORTENCIA MORRISON Primary Care Unavailable SATNAM MAGALLANES Consulting Unavailable ALTAGRACIA ELIZABETH Referring Unavailable TAMIKOHORTENCIA Primary Care Unavailable FLORO, BRIGHT Referring Unavailable TAMIKOHORTENCIA CASTELLON Primary Care Unavailable FLORO, BRIGHT L Attending Unavailable FLORO, BRIGHT L Attending Unavailable FLORO, BRIGHT L Attending Unavailable FLORO, BRIGHT L Referring Unavailable FLORO, BRIGHT L Attending Unavailable FLORO, BRIGHT L Attending Unavailable FLORO, BRIGHT L Referring Unavailable FLORO, BIRGHT L Attending Unavailable FLORO, BRIGHT L Attending Unavailable FLORO, BRIGHT L Referring Unavailable FLORO, BRIGHT L Attending Unavailable FLORO, BRIGHT L Attending Unavailable FLORO, BRIGHT L Attending Unavailable FLORO, BRIGHT L Attending Unavailable FLORO, BRIGHT L Attending Unavailable FLORO, BRIGHT L Attending Unavailable FLORO, BRIGHT L Referring Unavailable Allergies Allergy Classification Reported Allergen(s) Allergy Type Date of Onset Reaction(s) Facility Penicillins (antibiotic) (1 source) Penicillins; Translations: [PENICILLINS] Drug Allergy 1 [facility] (2 sources) Penicillins; Translations: [PENICILLINS] Drug Intolerance 1 [facility] (1 source) Amoxicillin-Pot Clavulanate Drug Allergy Hives [facility] Medications Current Medications Medication [...] [Anxiety disorder, unspecified] Onset: 09-18-2023 09-18-2023 Chronic Essential hypertension (1 source) Hypertensive disorder Onset: 05-21-2024 Chronic Hypertension complicating ; childbirth and the puerperium (2 sources) Severe pre-eclampsia complicating childbirth; Translations: [Unspecified pre-eclampsia, unspecified trimester] Onset: 05-21-2024 Episodic Mood disorders (2 sources) Mixed bipolar affective disorder, mild; Translations: [Bipolar disorder, current episode mixed, mild] Onset: 07-19-2023 07-19-2023 Chronic Other nervous system disorders (1 source) Anosmia; Translations: [ANOSMIA] Onset: 03-04-2021 Episodic Other nervous system disorders (1 source) Parageusia; Translations: [PARAGEUSIA] Onset: 03-04-2021 Episodic Other screening for suspected conditions (not mental disorders or infectious disease) (1 source) Encounter for other specified screening; Translations: [Encounter for other specified screening] Onset: 05-21-2024 Episodic Other upper respiratory disease (1 source) Nasal congestion; Translations: [NASAL CONGESTION] Onset: 03-04-2021 Episodic Unclassified (3 sources) CONTACT W/AND (SUSP) EXPOS COVID-19; Translations: [CONTACT W/AND (SUSP) EXPOS COVID-19] Onset: 02-26-2021 Unclassified (1 source) COVID-19; Translations: [COVID-19] Onset: 03-04-2021 Unclassified (1 source) OB Reminders Onset: 11-14-2023 11-14-2023 Unclassified (1 source) Severe Features Onset: 05-21-2024 Past or Other Problems Problem Classification Problem [...] Results Test Name Value Interpretation Reference Range Facility CBC AND AUTO DIFFon 05-24-20 Band form neutrophils/100 WBC (Bld) 2.0 % Normal [facility] Comment on above: Performed By: #### C BCA, CMP, HA1C #### [facility] ([id number]) [address], [address] [place] [address] Eosinophils (Bld) [#/Vol] 1.0 10*3/uL High 0.0-0.4 [facility] Comment on above: Performed By: #### Rosales BCA, CMP, HA1C #### [facility] ([id number]) [address], [address] [place] [address] Eosinophils/100 WBC (Bld) 9.0 % Normal [facility] Comment on above: Performed By: #### Rosales BCA, CMP, HA1C #### [facility] ([id number]) [address] [place] [address] Erythrocyte distribution width (RBC) [Ratio] 14.3 % Normal 11.5-15.0 [facility] Comment on above: Performed By: #### Rosales BCA, CMP, HA1C #### [facility] ([id number]) [address], [address] [place] [address] Hematocrit (Bld) [Volume fraction] 24.1 % Low 35-47 [facility] Comment on above: Performed By: #### C TONY CMP, HA1C #### [facility] ([id number]) [address], [address] [place] [address] Hemoglobin (Bld) [Mass/Vol] 8.6 g/dL Low 11.7-15.5 [facility] Comment on above: Performed By: #### C TONY, CMP, HA1C #### [facility] ([id number]) [address], [address] [place] [address] Lymphocytes (Bld) [#/Vol] 1.4 10*3/uL Normal 1.0-3.5 [facility] Comment on above: Performed By: #### C TONY, CMP, HA1C #### [facility] ([id number]) [address], [address] [place] [address] Lymphocytes/100 WBC (Bld) 13.0 % Normal [facility] Comment on above: Performed By: #### C TONY, CMP, HA1C #### [facility] ([id number]) [address], [address] [place] [address] MCH (RBC) [Entitic mass] 34.5 pg High 27-34 [facility] Comment on above: Performed By: #### C BCA, CMP, HA1C #### [facility] ([id number]) [address], [address] [place] [address] MCHC (RBC) [Mass/Vol] 35.7 g/dL Normal 32-36 [facility] Comment on above: Performed By: #### C BCA, CMP, HA1C #### [facility] ([id number]) [address], [address] [place] [address] MCV (RBC) [Entitic vol] 97 fL Normal 80-100 [facility] Comment on above: Performed By: #### C TONY, CMP, HA1C #### [facility] ([id number]) [address], [address] [place] [address] Monocytes (Bld) [#/Vol] 0.2 10*3/uL Normal 0-0.9 [facility] Comment on above: Performed By: #### C BCA, CMP, HA1C #### [facility] ([id number]) [address], [address] [place] [address] Monocytes/100 WBC (Bld) 2.0 % Normal [facility] Comment on above: Performed By: #### C TONY, CMP, HA1C #### [facility] ([id number]) [address], [address] [place] [address] MYELOCYTE 1.0 % Normal [facility] Comment on above: Performed By: #### C BCA, CMP, HA1C #### [facility] ([id number]) [address], [address] [place] [address] Neutrophils (Bld) [#/Vol] 8.2 10*3/uL High 1.5-6.6 [facility] Comment on above: Performed By: #### C BCA, CMP, HA1C #### [facility] ([id number]) [address] [place] [address] NUCLEATED RBC 1.0 /100 WBC Normal 0.0-1.0 [facility] Comment on above: Performed By: #### C TONY, CMP, HA1C #### [facility] ([id number]) [address], [address] [place] [address] Platelet mean volume (Bld) [Entitic vol] 7.3 fL Normal 7-12 [facility] Comment on above: Performed By: #### C BCA, CMP, HA1C #### [facility] ([id number]) [address], [address] [place] [address] Platelets (Bld) [#/Vol] 233 10*3/uL Normal 150-450 [facility] Comment on above: Performed By: #### C BCA, CMP, HA1C #### [facility] ([id number]) [address], [address] [place] [address] POLYCHROMASIA 1+ Abnormal NONE [facility] Comment on above: Performed By: #### C BCA, CMP, HA1C #### [facility] ([id number]) [address] [place] [address] RBC COUNT 2.49 X10E12/L Low 3.80-5.20 [facility] Comment on above: Performed By: #### C BCA, CMP, HA1C #### [facility] ([id number]) [address], [address] [place] [address] SEG NEUTROPHIL 73.0 % Normal [facility] Comment on above: Performed By: #### C BCA, CMP, HA1C #### [facility] ([id number]) [address], [address] [place] [address] WBC (Bld) [#/Vol] 10.9 10*3/uL Normal 4.0-11.0 [facility] Comment on above: Performed By: #### C BCA, CMP, HA1C #### [facility] ([id number]) [address], [address] [place] [address] COMPREHENSIVE METABOLIC PANE Rasheed 05-24-2024 Albumin [Mass/Vol] 3.0 g/dL Low 3.2-5.3 [facility] Comment on above: Performed By: #### C BCA, CMP, HA1C #### [facility] ([id number]) [address], [address] [place] [address] ALP [Catalytic activity/Vol] 79 U/L Normal 39-130 [facility] Comment on above: Performed By: #### C BCA, CMP, HA1C #### [facility] ([id number]) [address], [address] [place] [address] ALT [Catalytic activity/Vol] 22 U/L Normal 0-31 [facility] Comment on above: Performed By: #### C BCA, CMP, HA1C #### [facility] ([id number]) [address] [place] [address] Anion gap [Moles/Vol] 11 mmol/L Normal 5-15 [facility] Comment on above: Performed By: #### C BCA, CMP, HA1C #### [facility] ([id number]) [address], [address] [place] [address] AST [Catalytic activity/Vol] 27 U/L Normal 0-41 [facility] Comment on above: Performed By: #### C BCA, CMP, HA1C #### [facility] ([id number]) [address] [place] [address] Bilirubin [Mass/Vol] 0.3 mg/dL Normal 0.3-1.2 [facility] Comment on above: Performed By: #### C BCA, CMP, HA1C #### [facility] ([id number]) [address], [address] [place] [address] Calcium [Mass/Vol] 8.6 mg/dL Normal 8.5-10.5 [facility] Comment on above: Performed By: #### C BCA, CMP, HA1C #### [facility] ([id number]) [address], [address] [place] [address] Chloride [Moles/Vol] 105 mmol/L Normal 98-109 [facility] Comment on above: Performed By: #### C BCA, CMP, HA1C #### [facility] ([id number]) [address] [place] [address] CO2 [Moles/Vol] 23 mmol/L Normal 22-32 [facility] Comment on above: Performed By: #### C BCA, CMP, HA1C #### [facility] ([id number]) [address] [place] [address] Creatinine [Mass/Vol] 0.44 mg/dL Normal 0.40-1.00 [facility] Comment on above: Result Comment: METH OD TRACEABLE TO IDMS STANDARD Performed By: #### C BCA, CMP, HA1C #### [facility] ([id number]) [address] [address] eGFR (CKD-EPI) NON-RACE DEPENDENT >90 Normal >59 [facility] Comment on above: Result Comment: Reported eGFR is based on the CKD-EPI 2020 equation that does not use a race coefficient. Performed By: #### C BCA, CMP, HA1C #### [facility] ([id number]) [address] [place] [address] Glucose [Mass/Vol] 76 mg/dL Normal 65-99 [facility] Comment on above: Performed By: #### C BCA, CMP, HA1C #### [facility] ([id number]) [address] [place] [address] Potassium [Moles/Vol] 4.2 mmol/L Normal 3.5-5.0 [facility] Comment on above: Performed By: #### C BCA, CMP, HA1C #### [facility] ([id number]) [address] [address] Protein [Mass/Vol] 5.7 g/dL Low 6.0-8.0 [facility] Comment on above: Performed By: #### C BCA, CMP, HA1C #### [facility] ([id number]) [address], [address] [place] [address] Sodium [Moles/Vol] 139 mmol/L Normal 134-146 [facility] Comment on above: Performed By: #### C BCA, CMP, HA1C #### [facility] ([id number]) [address], [address] [place] [address] Urea nitrogen [Mass/Vol] 11 mg/dL Normal 5-23 [facility] Comment on above: Performed By: #### C BCA, CMP, HA1C #### [facility] ([id number]) [address], [address] [place] [address] CBC AND AUTO DIFFon 05-23-20 24 ABSOLUTE BASOPHIL 0.0 X10E9/L Normal 0.0-0.2 [facility] Comment on above: Performed By: #### C BCA, CMP, HA1C #### [facility] ([id number]) [address] [place] [address] ABSOLUTE NEUTROPHIL 9.1 X10E9/L High 1.5-6.6 [facility] Comment on above: Performed By: #### C BCA, CMP, HA1C #### [facility] ([id number]) [address], [address] [place] [address] Basophils/100 WBC (Bld) 0.3 % Normal [facility] Comment on above: Performed By: #### C BCA, CMP, HA1C #### [facility] ([id number]) [address] [address] [facility] [address] [place] [address] Eosinophils (Bld) [#/Vol] 0.4 10*3/uL Normal 0.0-0.4 [facility] Comment on above: Performed By: #### C BCA, CMP, HA1C #### [facility] ([id number]) [address], [address] [place] [address] Eosinophils/100 WBC (Bld) 3.6 % Normal [facility] Comment on above: Performed By: #### C BCA, CMP, HA1C #### [facility] ([id number]) [address] [facility] [address] [place] [address] Erythrocyte distribution width (RBC) [Ratio] 14.5 % Normal 11.5-15.0 [facility] Comment on above: Performed By: #### C TONY, CMP, HA1C #### [facility] ([id number]) [address] [place] [address] Hematocrit (Bld) [Volume fraction] 25.7 % Low 35-47 [facility] Comment on above: Performed By: #### C TONY, CMP, HA1C #### [facility] ([id number]) [address] [place] [address] Hemoglobin (Bld) [Mass/Vol] 9.0 g/dL Low 11.7-15.5 [facility] Comment on above: Performed By: #### C BCA, CMP, HA1C #### [facility] ([id number]) [address] [place] [address] Lymphocytes (Bld) [#/Vol] 1.6 10*3/uL Normal 1.0-3.5 [facility] Comment on above: Performed By: #### C TONY, CMP, HA1C #### [facility] ([id number]) [address] [address] [place] [address] Lymphocytes/100 WBC (Bld) 13.6 % Normal [facility] Comment on above: Performed By: #### C BCA, CMP, HA1C #### [facility] ([id number]) [address] [address] [place] [address] MCH (RBC) [Entitic mass] 33.8 pg Normal 27-34 [facility] Comment on above: Performed By: #### C BCA, CMP, HA1C #### [facility] ([id number]) [address] [place] [address] MCHC (RBC) [Mass/Vol] 34.9 g/dL Normal 32-36 [facility] Comment on above: Performed By: #### C BCA, CMP, HA1C #### [facility] ([id number]) [address] [place] [address] MCV (RBC) [Entitic vol] 97 fL Normal 80-100 [facility] Comment on above: Performed By: #### C BCA, CMP, HA1C #### [facility] ([id number]) [address] [place] [address] Monocytes (Bld) [#/Vol] 0.7 10*3/uL Normal 0-0.9 [facility] Comment on above: Performed By: #### C TONY, CMP, HA1C #### [facility] ([id number]) [address] [place] [address] Monocytes/100 WBC (Bld) 6.3 % Normal [facility] Comment on above: Performed By: #### C TONY, CMP, HA1C #### [facility] ([id number]) [address] [place] [address] Neutrophils/100 WBC (Bld) 76.2 % Normal [facility] Comment on above: Performed By: #### C BCA, CMP, HA1C #### [facility] ([id number]) [address] [place] [address] Platelet mean volume (Bld) [Entitic vol] 7.5 fL Normal 7-12 [facility] Comment on above: Performed By: #### C BCA, CMP, HA1C #### [facility] ([id number]) [address] [place] [address] Platelets (Bld) [#/Vol] 250 10*3/uL Normal 150-450 [facility] Comment on above: Performed By: #### C BCA, CMP, HA1C #### [facility] ([id number]) [address] [place] [address] RBC COUNT 2.65 X10E12/L Low 3.80-5.20 [facility] Comment on above: Performed By: #### C BCA, CMP, HA1C #### [facility] ([id number]) [address] [place] [address] WBC (Bld) [#/Vol] 11.9 10*3/uL High 4.0-11.0 [facility] Comment on above: Performed By: #### C BCA, CMP, HA1C #### [facility] ([id number]) [address] [place] [address] ABSOLUTE BASOPHIL 0.0 X10E9/L Normal 0.0-0.2 [facility] Comment on above: Performed By: #### C BCA, CMP, HA1C #### [facility] ([id number]) [address] [place] [address] ABSOLUTE NEUTROPHIL 9.2 X10E9/L High 1.5-6.6 [facility] Comment on above: Performed By: #### C BCA, CMP, HA1C #### [facility] ([id number]) [address] [place] [address] Basophils/100 WBC (Bld) 0.4 % Normal [facility] Comment on above: Performed By: #### C BCA, CMP, HA1C #### [facility] ([id number]) [address] [place] [address] Eosinophils (Bld) [#/Vol] 0.3 10*3/uL Normal 0.0-0.4 [facility] Comment on above: Performed By: #### C BCA, CMP, HA1C #### [facility] ([id number]) [address] [place] [address] Eosinophils/100 WBC (Bld) 2.4 % Normal [facility] Comment on above: Performed By: #### C BCA, CMP, HA1C #### [facility] ([id number]) [address] [place] [address] Erythrocyte distribution width (RBC) [Ratio] 14.2 % Normal 11.5-15.0 [facility] Comment on above: Performed By: #### C OTNY, CMP, HA1C #### [facility] ([id number]) [address] [place] [address] Hematocrit (Bld) [Volume fraction] 24.7 % Low 35-47 [facility] Comment on above: Performed By: #### C TONY, CMP, HA1C #### [facility] ([id number]) [address] [place] [address] Hemoglobin (Bld) [Mass/Vol] 8.6 g/dL Low 11.7-15.5 [facility] Comment on above: Performed By: #### C TONY, CMP, HA1C #### [facility] ([id number]) [address] [place] [address] Lymphocytes (Bld) [#/Vol] 1.7 10*3/uL Normal 1.0-3.5 [facility] Comment on above: Performed By: #### C BCA, CMP, HA1C #### [facility] ([id number]) [address] [place] [address] Lymphocytes/100 WBC (Bld) 13.8 % Normal [facility] Comment on above: Performed By: #### C BCA, CMP, HA1C #### [facility] ([id number]) [address] [place] [address] MCH (RBC) [Entitic mass] 33.7 pg Normal 27-34 [facility] Comment on above: Performed By: #### C TONY CMP, HA1C #### [facility] ([id number]) [address] [place] [address] MCHC (RBC) [Mass/Vol] 34.8 g/dL Normal 32-36 [facility] Comment on above: Performed By: #### C TONY, CMP, HA1C #### [facility] ([id number]) [address] [place] [address] MCV (RBC) [Entitic vol] 97 fL Normal 80-100 [facility] Comment on above: Performed By: #### C TONY, CMP, HA1C #### [facility] ([id number]) [address] [place] [address] Monocytes (Bld) [#/Vol] 0.8 10*3/uL Normal 0-0.9 [facility] Comment on above: Performed By: #### C TONY, CMP, HA1C #### [facility] ([id number]) [address] [place] [address] Monocytes/100 WBC (Bld) 6.8 % Normal [facility] Comment on above: Performed By: #### C TONY, CMP, HA1C #### [facility] ([id number]) [address] [place] [address] Neutrophils/100 WBC (Bld) 76.6 % Normal [facility] Comment on above: Performed By: #### C TONY, CMP, HA1C #### [facility] ([id number]) [address] [place] [address] Platelet mean volume (Bld) [Entitic vol] 7.3 fL Normal 7-12 [facility] Comment on above: Performed By: #### C BCA, CMP, HA1C #### [facility] ([id number]) [address] [place] [address] Platelets (Bld) [#/Vol] 230 10*3/uL Normal 150-450 [facility] Comment on above: Performed By: #### C BCA, CMP, HA1C #### [facility] ([id number]) [address] [place] [address] RBC COUNT 2.55 X10E12/L Low 3.80-5.20 [facility] Comment on above: Performed By: #### C BCA, CMP, HA1C #### [facility] ([id number]) [address], [address] [place] [address] WBC (Bld) [#/Vol] 12.1 10*3/uL High 4.0-11.0 [facility] Comment on above: Performed By: #### C BCA, CMP, HA1C #### [facility] ([id number]) [address], [address] [place] [address] COMPREHENSIVE METABOLIC PANE Rasheed 05-23-2024 Albumin [Mass/Vol] 2.9 g/dL Low 3.2-5.3 [facility] Comment on above: Performed By: #### C BCA, CMP, HA1C #### [facility] ([id number]) [address], [address] [place] [address] ALP [Catalytic activity/Vol] 89 U/L Normal 39-130 [facility] Comment on above: Performed By: #### C BCA, CMP, HA1C #### [facility] ([id number]) [address], [address] [place] [address] ALT [Catalytic activity/Vol] 18 U/L Normal 0-31 [facility] Comment on above: Performed By: #### C BCA, CMP, HA1C #### [facility] ([id number]) [address], [address] [place] [address] Anion gap [Moles/Vol] 11 mmol/L Normal 5-15 [facility] Comment on above: Performed By: #### C BCA, CMP, HA1C #### [facility] ([id number]) [address], [address] [place] [address] AST [Catalytic activity/Vol] 22 U/L Normal 0-41 [facility] Comment on above: Performed By: #### C BCA, CMP, HA1C #### [facility] ([id number]) [address], [address] [place] [address] Bilirubin [Mass/Vol] 0.3 mg/dL Normal 0.3-1.2 [facility] Comment on above: Performed By: #### C BCA, CMP, HA1C #### [facility] [facility] ([id number]) [address] [place] [address] Calcium [Mass/Vol] 8.4 mg/dL Low 8.5-10.5 [facility] Comment on above: Performed By: #### C BCA, CMP, HA1C #### [facility] ([id number]) [address], [address] [place] [address] Chloride [Moles/Vol] 106 mmol/L Normal 98-109 [facility] Comment on above: Performed By: #### C BCA, CMP, HA1C #### [facility] ([id number]) [address], [address] [place] [address] CO2 [Moles/Vol] 22 mmol/L Normal 22-32 [facility] Comment on above: Performed By: #### C BCA, CMP, HA1C #### [facility] ([id number]) [address], [address] [place] [address] Creatinine [Mass/Vol] 0.47 mg/dL Normal 0.40-1.00 [facility] Comment on above: Result Comment: METH OD TRACEABLE TO IDMS STANDARD Performed By: #### C MALAIKA JIMENEZ, HA1C #### [facility] ([id number]) [address], [address] [place] [address] eGFR (CKD-EPI) NON-RACE DEPENDENT >90 Normal >59 [facility] Comment on above: Result Comment: Reported eGFR is based on the CKD-EPI 2020 equation that does not use a race coefficient. Performed By: #### C TONY, CMP, HA1C #### [facility] ([id number]) [address], [address] [place] [address] Glucose [Mass/Vol] 89 mg/dL Normal 65-99 [facility] Comment on above: Performed By: #### C TONY CMP, HA1C #### [facility] ([id number]) [address], [address] [place] [address] Potassium [Moles/Vol] 4.2 mmol/L Normal 3.5-5.0 [facility] Comment on above: Performed By: #### C TONY, CMP, HA1C #### [facility] ([id number]) [address], [address] [place] [address] Protein [Mass/Vol] 5.6 g/dL Low 6.0-8.0 [facility] Comment on above: Performed By: #### C TONY, CMP, HA1C #### [facility] ([id number]) [address], [address] [place] [address] Sodium [Moles/Vol] 139 mmol/L Normal 134-146 [facility] Comment on above: Performed By: #### C BCA, CMP, HA1C #### [facility] ([id number]) [address], [address] [place] [address] Urea nitrogen [Mass/Vol] 13 mg/dL Normal 5-23 [facility] Comment on above: Performed By: #### C BCA, CMP, HA1C #### [facility] ([id number]) [address], [address] [place] [address] Albumin [Mass/Vol] 2.7 g/dL Low 3.2-5.3 [facility] Comment on above: Performed By: #### C BCA, CMP, HA1C #### [facility] ([id number]) [address], [address] [place] [address] ALP [Catalytic activity/Vol] 69 U/L Normal 39-130 [facility] Comment on above: Performed By: #### C BCA, CMP, HA1C #### [facility] ([id number]) [address], [address] [place] [address] ALT [Catalytic activity/Vol] 13 U/L Normal 0-31 [facility] Comment on above: Performed By: #### C BCA, CMP, HA1C #### [facility] ([id number]) [address], [address] [place] [address] Anion gap [Moles/Vol] 8 mmol/L Normal 5-15 [facility] Comment on above: Performed By: #### C BCA, CMP, HA1C #### [facility] ([id number]) [address], [address] [place] [address] AST [Catalytic activity/Vol] 23 U/L Normal 0-41 [facility] Comment on above: Performed By: #### C BCA, CMP, HA1C #### [facility] ([id number]) [address], [address] [place] [address] Bilirubin [Mass/Vol] 0.3 mg/dL Normal 0.3-1.2 [facility] Comment on above: Performed By: #### C BCA, CMP, HA1C #### [facility] ([id number]) [address], [address] [place] [address] Calcium [Mass/Vol] 7.5 mg/dL Low 8.5-10.5 [facility] Comment on above: Performed By: #### C BCA, CMP, HA1C #### [facility] ([id number]) [address], [address] [place] [address] Chloride [Moles/Vol] 106 mmol/L Normal 98-109 [facility] Comment on above: Performed By: #### C BCA, CMP, HA1C #### [facility] ([id number]) [address], [address] [place] [address] CO2 [Moles/Vol] 23 mmol/L Normal 22-32 [facility] Comment on above: Performed By: #### C BCA, CMP, HA1C #### [facility] ([id number]) [address], [address] [place] [address] Creatinine [Mass/Vol] 0.44 mg/dL Normal 0.40-1.00 [facility] Comment on above: Result Comment: METH OD TRACEABLE TO IDMS STANDARD Performed By: #### C BCA, CMP, HA1C #### [facility] ([id number]) [address] [address] [place] [address] eGFR (CKD-EPI) NON-RACE DEPENDENT >90 Normal >59 [facility] Comment on above: Result Comment: Reported eGFR is based on the CKD-EPI 1 equation that does not use a race coefficient. Performed By: #### C BCA, CMP, HA1C #### [facility] ([id number]) [address], [address] [place] [address] Glucose [Mass/Vol] 76 mg/dL Normal 65-99 [facility] Comment on above: Performed By: #### C BCA, CMP, HA1C #### [facility] ([id number]) [address], [address] [place] [address] Potassium [Moles/Vol] 4.5 mmol/L Normal 3.5-5.0 [facility] Comment on above: Performed By: #### C TONY, CMP, HA1C #### [facility] ([id number]) [address], [address] [place] [address] Protein [Mass/Vol] 5.0 g/dL Low 6.0-8.0 [facility] Comment on above: Performed By: #### C BCA, CMP, HA1C #### [facility] ([id number]) [address] [place] [address] Sodium [Moles/Vol] 137 mmol/L Normal 134-146 [facility] Comment on above: Performed By: #### C BCA, CMP, HA1C #### [facility] ([id number]) [address] [place] [address] Urea nitrogen [Mass/Vol] 14 mg/dL Normal 5-23 [facility] Comment on above: Performed By: #### C BCA, CMP, HA1C #### [facility] ([id number]) [address] [place] [address] CBC AND AUTO DIFFon 05-22-20 24 ABSOLUTE BASOPHIL 0.0 X10E9/L Normal 0.0-0.2 [facility] Comment on above: Performed By: #### C BCA, CMP, HA1C #### [facility] ([id number]) [address] [place] [address] ABSOLUTE NEUTROPHIL 11.3 X10E9/L High 1.5-6.6 [facility] Comment on above: Performed By: #### C BCA, CMP, HA1C #### [facility] ([id number]) [address] [place] [address] Basophils/100 WBC (Bld) 0.1 % Normal [facility] Comment on above: Performed By: #### C BCA, CMP, HA1C #### [facility] ([id number]) [address], [address] [place] [address] Eosinophils (Bld) [#/Vol] 0.0 10*3/uL Normal 0.0-0.4 [facility] Comment on above: Performed By: #### C BCA, CMP, HA1C #### [facility] ([id number]) [address], [address] [place] [address] Eosinophils/100 WBC (Bld) 0.2 % Normal [facility] Comment on above: Performed By: #### C BCA, CMP, HA1C #### [facility] ([id number]) [address] [place] [address] Erythrocyte distribution width (RBC) [Ratio] 14.2 % Normal 11.5-15.0 [facility] Comment on above: Performed By: #### C BCA, CMP, HA1C #### [facility] ([id number]) [address], [address] [place] [address] Hematocrit (Bld) [Volume fraction] 25.6 % Low 35-47 [facility] Comment on above: Performed By: #### C BCA, CMP, HA1C #### [facility] ([id number]) [address], [address] [place] [address] Hemoglobin (Bld) [Mass/Vol] 9.3 g/dL Low 11.7-15.5 [facility] Comment on above: Performed By: #### C BCA, CMP, HA1C #### [facility] ([id number]) [address], [address] [place] [address] Lymphocytes (Bld) [#/Vol] 1.5 10*3/uL Normal 1.0-3.5 [facility] Comment on above: Performed By: #### C BCA, CMP, HA1C #### [facility] ([id number]) [address], [address] [place] [address] Lymphocytes/100 WBC (Bld) 10.9 % Normal [facility] Comment on above: Performed By: #### C TONY, CMP, HA1C #### [facility] ([id number]) [address] [place] [address] MCH (RBC) [Entitic mass] 34.7 pg High 27-34 [facility] Comment on above: Performed By: #### C TONY, CMP, HA1C #### [facility] ([id number]) [address] [place] [address] MCHC (RBC) [Mass/Vol] 36.1 g/dL High 32-36 [facility] Comment on above: Performed By: #### C TONY, CMP, HA1C #### [facility] ([id number]) [address] [place] [address] MCV (RBC) [Entitic vol] 96 fL Normal 80-100 [facility] Comment on above: Performed By: #### C TONY, CMP, HA1C #### [facility] ([id number]) [address] [place] [address] Monocytes (Bld) [#/Vol] 0.9 10*3/uL Normal 0-0.9 [facility] Comment on above: Performed By: #### C TONY, CMP, HA1C #### [facility] ([id number]) [address] [place] [address] Monocytes/100 WBC (Bld) 6.8 % Normal [facility] Comment on above: Performed By: #### C TONY, CMP, HA1C #### [facility] ([id number]) [address] [place] [address] Neutrophils/100 WBC (Bld) 82.0 % Normal [facility] Comment on above: Performed By: #### C BCA, CMP, HA1C #### [facility] ([id number]) [address] [place] [address] Platelet mean volume (Bld) [Entitic vol] 7.5 fL Normal 7-12 [facility] Comment on above: Performed By: #### C BCA, CMP, HA1C #### [facility] ([id number]) [address] [place] [address] Platelets (Bld) [#/Vol] 242 10*3/uL Normal 150-450 [facility] Comment on above: Performed By: #### C BCA, CMP, HA1C #### [facility] ([id number]) [address], [address] [place] [address] RBC COUNT 2.67 X10E12/L Low 3.80-5.20 [facility] Comment on above: Performed By: #### C BCA, CMP, HA1C #### [facility] ([id number]) [address], [facility] [address] [place] [address] WBC (Bld) [#/Vol] 13.8 10*3/uL High 4.0-11.0 [facility] Comment on above: Performed By: #### C BCA, CMP, HA1C #### [facility] ([id number]) [address] [place] [address] ABSOLUTE BASOPHIL 0.0 X10E9/L Normal 0.0-0.2 [facility] Comment on above: Performed By: #### C TONY, CMP, 77432-9 #### [facility] ([id number]) [address] [place] [address] ABSOLUTE NEUTROPHIL 12.4 X10E9/L High 1.5-6.6 [facility] Comment on above: Performed By: #### C BCA, CMP, 28650-3 #### [facility] ([id number]) [address], [address] [place] [address] Basophils/100 WBC (Bld) 0.1 % Normal [facility] Comment on above: Performed By: #### C BCA, CMP, 91574-3 #### [facility] ([id number]) [address], [address] [place] [address] Eosinophils (Bld) [#/Vol] 0.0 10*3/uL Normal 0.0-0.4 [facility] Comment on above: Performed By: #### C BCA, CMP, 67902-9 #### [facility] ([id number]) [address] [place] [address] Eosinophils/100 WBC (Bld) 0.0 % Normal [facility] Comment on above: Performed By: #### Rosales BCA, CMP, 78074-4 #### [facility] ([id number]) [address] [place] [address] Erythrocyte distribution width (RBC) [Ratio] 14.0 % Normal 11.5-15.0 [facility] Comment on above: Performed By: #### C BCA, CMP, 28770-1 #### [facility] ([id number]) [address] [place] [address] Hematocrit (Bld) [Volume fraction] 26.3 % Low 35-47 [facility] Comment on above: Performed By: #### C BCA, CMP, 00259-1 #### [facility] ([id number]) [address], [facility] [address] [place] [address] Hemoglobin (Bld) [Mass/Vol] 9.2 g/dL Low 11.7-15.5 [facility] Comment on above: Performed By: #### C BCA, CMP, 21266-7 #### [facility] ([id number]) [address], [address] [place] [address] Lymphocytes (Bld) [#/Vol] 1.3 10*3/uL Normal 1.0-3.5 [facility] Comment on above: Performed By: #### C BCA, CMP, 37272-7 #### [facility] ([id number]) [address], [facility] [address] [place] [address] Lymphocytes/100 WBC (Bld) 8.7 % Normal [facility] Comment on above: Performed By: #### C TONY, CMP, 10409-9 #### [facility] ([id number]) [address], [facility] [address] [place] [address] MCH (RBC) [Entitic mass] 33.6 pg Normal 27-34 [facility] Comment on above: Performed By: #### Rosales JIMENEZ, CMP, 01215-1 #### [facility] ([id number]) [address] [place] [address] MCHC (RBC) [Mass/Vol] 35.1 g/dL Normal 32-36 [facility] Comment on above: Performed By: #### C TONY, CMP, 63920-4 #### [facility] ([id number]) [address] [place] [address] MCV (RBC) [Entitic vol] 96 fL Normal 80-100 [facility] Comment on above: Performed By: #### C BCA, CMP, 47585-4 #### [facility] ([id number]) [address], [address] [place] [address] Monocytes (Bld) [#/Vol] 0.9 10*3/uL Normal 0-0.9 [facility] Comment on above: Performed By: #### C BCA, CMP, 96082-6 #### [facility] ([id number]) [address] [place] [address] Monocytes/100 WBC (Bld) 6.2 % Normal [facility] Comment on above: Performed By: #### C BCA, CMP, 51688-7 #### [facility] ([id number]) [address] [place] [address] Neutrophils/100 WBC (Bld) 85.0 % Normal [facility] Comment on above: Performed By: #### Rosales BCA, CMP, 59375-1 #### [facility] ([id number]) [address], [facility] [address] [place] [address] Platelet mean volume (Bld) [Entitic vol] 7.7 fL Normal 7-12 [facility] Comment on above: Performed By: #### Rosales JIMENEZ, CMP, 83724-9 #### [facility] ([id number]) [address], [facility] [address] [place] [address] Platelets (Bld) [#/Vol] 227 10*3/uL Normal 150-450 [facility] Comment on above: Performed By: #### Rosales BCA, CMP, 58803-8 #### [facility] ([id number]) [address], [facility] [address] [place] [address] RBC COUNT 2.74 X10E12/L Low 3.80-5.20 [facility] Comment on above: Performed By: #### Rosales BCA, CMP, 40416-1 #### [facility] ([id number]) [address], [facility] [address] [place] [address] WBC (Bld) [#/Vol] 14.7 10*3/uL High 4.0-11.0 [facility] Comment on above: Performed By: #### Rosales BCA, CMP, 82516-6 #### [facility] ([id number]) [address] [place] [address] COMPREHENSIVE METABOLIC PANE Rasheed 05-22-2024 Albumin [Mass/Vol] 2.6 g/dL Low 3.2-5.3 [facility] Comment on above: Performed By: #### C BCA, CMP, HA1C #### [facility] ([id number]) [address] [place] [address] ALP [Catalytic activity/Vol] 73 U/L Normal 39-130 [facility] Comment on above: Performed By: #### C BCA, CMP, HA1C #### [facility] ([id number]) [address] [place] [address] ALT [Catalytic activity/Vol] 13 U/L Normal 0-31 [facility] Comment on above: Performed By: #### C BCA, CMP, HA1C #### [facility] ([id number]) [address] [place] [address] Anion gap [Moles/Vol] 7 mmol/L Normal 5-15 [facility] Comment on above: Performed By: #### C BCA, CMP, HA1C #### [facility] ([id number]) [address] [place] [address] AST [Catalytic activity/Vol] 22 U/L Normal 0-41 [facility] Comment on above: Performed By: #### C BCA, CMP, HA1C #### [facility] ([id number]) [address] [place] [address] Bilirubin [Mass/Vol] 0.5 mg/dL Normal 0.3-1.2 [facility] Comment on above: Performed By: #### C BCA, CMP, HA1C #### [facility] ([id number]) [address] [place] [address] Calcium [Mass/Vol] 6.6 mg/dL Critically low 8.5-10.5 [facility] Comment on above: Performed By: #### C BCA, CMP, HA1C #### [facility] ([id number]) [address] [place] [address] Chloride [Moles/Vol] 105 mmol/L Normal 98-109 [facility] Comment on above: Performed By: #### C BCA, CMP, HA1C #### [facility] ([id number]) [address] [place] [address] CO2 [Moles/Vol] 24 mmol/L Normal 22-32 [facility] Comment on above: Performed By: #### C BCA, CMP, HA1C #### [facility] ([id number]) [address] [place] [address] Creatinine [Mass/Vol] 0.45 mg/dL Normal 0.40-1.00 [facility] Comment on above: Result Comment: METH OD TRACEABLE TO IDMS STANDARD Performed By: #### C BCA, CMP, HA1C #### [facility] ([id number]) [address], [address] [address] eGFR (CKD-EPI) NON-RACE DEPENDENT >90 Normal >59 [facility] Comment on above: Result Comment: Reported eGFR is based on the CKD-EPI 2020 equation that does not use a race coefficient. Performed By: #### C BCA, CMP, HA1C #### [facility] ([id number]) [address] [address] [place] [address] Glucose [Mass/Vol] 81 mg/dL Normal 65-99 [facility] Comment on above: Performed By: #### C BCA, CMP, HA1C #### [facility] ([id number]) [address] [place] [address] Potassium [Moles/Vol] 4.1 mmol/L Normal 3.5-5.0 [facility] Comment on above: Performed By: #### C BCA, CMP, HA1C #### [facility] ([id number]) [address], [address] [place] [address] Protein [Mass/Vol] 5.0 g/dL Low 6.0-8.0 [facility] Comment on above: Performed By: #### C BCA, CMP, HA1C #### [facility] ([id number]) [address] [place] [address] Sodium [Moles/Vol] 136 mmol/L Normal 134-146 [facility] Comment on above: Performed By: #### C BCA, CMP, HA1C #### [facility] ([id number]) [address] [place] [address] Urea nitrogen [Mass/Vol] 11 mg/dL Normal 5-23 [facility] Comment on above: Performed By: #### C BCA, CMP, HA1C #### [facility] ([id number]) [address] [place] [address] Albumin [Mass/Vol] 2.8 g/dL Low 3.2-5.3 [facility] Comment on above: Performed By: #### C BCA, CMP, 83753-3 #### [facility] ([id number]) [address] [place] [address] ALP [Catalytic activity/Vol] 75 U/L Normal 39-130 [facility] Comment on above: Performed By: #### C BCA, CMP, 89809-3 #### [facility] ([id number]) [address] [place] [address] ALT [Catalytic activity/Vol] 11 U/L Normal 0-31 [facility] Comment on above: Performed By: #### C BCA, CMP, 16095-9 #### [facility] ([id number]) [address] [place] [address] Anion gap [Moles/Vol] 9 mmol/L Normal 5-15 [facility] Comment on above: Performed By: #### C BCA, CMP, 66741-4 #### [facility] ([id number]) [address] [place] [address] AST [Catalytic activity/Vol] 23 U/L Normal 0-41 [facility] Comment on above: Performed By: #### C BCA, CMP, 99996-8 #### [facility] ([id number]) [address], [address] [place] [address] Bilirubin [Mass/Vol] 0.4 mg/dL Normal 0.3-1.2 [facility] Comment on above: Performed By: #### C BCA, CMP, 88629-1 #### [facility] ([id number]) [address], [address] [place] [address] Calcium [Mass/Vol] 7.0 mg/dL Low 8.5-10.5 [facility] Comment on above: Performed By: #### C BCA, CMP, 12218-1 #### [facility] ([id number]) [address], [address] [place] [address] Chloride [Moles/Vol] 104 mmol/L Normal 98-109 [facility] Comment on above: Performed By: #### C BCA, CMP, 14215-8 #### [facility] ([id number]) [address], [address] [place] [address] CO2 [Moles/Vol] 21 mmol/L Low 22-32 [facility] Comment on above: Performed By: #### C BCA, CMP, 45864-8 #### [facility] ([id number]) [address], [address] [place] [address] Creatinine [Mass/Vol] 0.46 mg/dL Normal 0.40-1.00 [facility] Comment on above: Result Comment: METH OD TRACEABLE TO IDMS STANDARD Performed By: #### C BCA, CMP, 90600-1 #### [facility] ([id number]) [address], [address] [place] [address] eGFR (CKD-EPI) NON-RACE DEPENDENT >90 Normal >59 [facility] Comment on above: Result Comment: Reported eGFR is based on the CKD-EPI 2020 equation that does not use a race coefficient. Performed By: #### C BCA, CMP, 84937-3 #### [facility] ([id number]) [address], [address] [place] [address] Glucose [Mass/Vol] 103 mg/dL High 65-99 [facility] Comment on above: Performed By: #### C BCA, CMP, 51185-9 #### [facility] ([id number]) [address] [place] [address] Potassium [Moles/Vol] 4.7 mmol/L Normal 3.5-5.0 [facility] Comment on above: Performed By: #### C BCA, CMP, 32900-4 #### [facility] ([id number]) [address], [address] [place] [address] Protein [Mass/Vol] 5.2 g/dL Low 6.0-8.0 [facility] [facility] Comment on above: Performed By: #### C BCA, CMP, 37444-4 #### [facility] ([id number]) [address], [address] [place] [address] Sodium [Moles/Vol] 134 mmol/L Normal 134-146 [facility] Comment on above: Performed By: #### C BCA, CMP, 68748-5 #### [facility] ([id number]) [address] [place] [address] Urea nitrogen [Mass/Vol] 9 mg/dL Normal 5-23 [facility] Comment on above: Performed By: #### C BCA, CMP, 55565-5 #### [facility] ([id number]) [address], [address] [place] [address] MAGNESIUMon 05-22-2024 Magnesium [Mass/Vol] 5.0 mg/dL High 1.8-2.6 [facility] Comment on above: Performed By: #### 1 9123-9 #### [facility] ([id number]) [address], [address] [place] [address] Natriuretic peptide B [Mass/ Vol]on 05-22-2024 Natriuretic peptide B (Bld) [Mass/Vol] 57 pg/mL Normal <100.0 [facility] Comment on above: Performed By: #### C BCA, CMP, HA1C #### [facility] ([id number]) [address], [address] [place] [address] RESP PATHOGENS/NVQI-[id number] 05-22-2024 Respiratory pathogens DNA and RNA panel MIGDALIA+non-probe (Nph) SPECIMEN SOURCE NASO PHARYNX ADENOVIRUS Not detected (qualifier value) CORONAVIRUS 229E Not detected (qualifier value) CORONAVIRUS HKU1 Not detected (qualifier value) CORONAVIRUS NL63 Not detected (qualifier value) CORONAVIRUS OC43 Not detected (qualifier value) HUMAN METAPNEUVIRUS Not detected (qualifier value) RHINO/ENTEROVIRUS Detected (qualifier value) INFLUENZA A Not detected (qualifier value) INFLUENZA B Not detected (qualifier value) PARAINFLUENZA 1 Not detected (qualifier value) PARAINFLUENZA 2 Not detected (qualifier value) PARAINFLUENZA 3 Not detected (qualifier value) PARAINFLUENZA 4 Not detected (qualifier value) RESP SYNCYTIAL VIRUS Not detected (qualifier value) BORD PARAPERTUSSIS Not detected (qualifier value) BORDETELLA PERTUSSIS Not detected (qualifier value) CHLAM.PNEUMONIAE Not detected (qualifier value) MYCO. PNEUMONIAE Not detected (qualifier value) SARS CoV 2 Not detected (qualifier value) NOTE The Yakaroulere Respiratory Panel 2.1 (RP2.1) is a multiplexed nucleic acid test intended for the simultaneous qualitative detection and differentiation of nucleic acid from multiple viral and bacterial respiratory organisms, including nucleic acid from Severe Acute Respiratory Syndrome Coronavirus 2 (SARS-CoV-2), in nasopharyngeal swabs obtained from individuals suspected of COVID-19 by their healthcare provider. Testing is limited to laboratories certified under the Clinical Laboratory Improvement Amendments of 1988 (CLIA), to perform high complexity or moderate complexity tests. SARS-CoV-2 RNA and nucleic acids from the other respiratory viral and bacterial organisms identified by this test are generally detectable in nasopharyngeal swabs during the acute phase of infection. The detection and identification of specific viral and bacterial nucleic acids from individuals exhibiting signs and/or symptoms of respiratory infection is indicative of the presence of the identified microorganism and aids in the diagnosis of respiratory infection if used in conjunction with other clinical and epidemiological information. Positive results are indicative of the presence of the identified organism, but do not rule out co-infection with other pathogens. The agent(s) detected by the Yakaroulere RP2.1 may not be the definite cause of disease and clinical correlation with patient history and other diagnostic information is necessary to determine patient infection status. Negative results in the setting of a respiratory illness may be due to infection with pathogens not detected by this test, or lower respiratory tract infection that may not be detected by a nasopharyngeal specimen. Negative results do not preclude SARS-CoV-2 infection and should not be used as the sole basis for patient management decisions. Negative KAMINI-CoV-2 results must be combined with clinical observations, patient history and epidemiological information. Negative results for other organisms identified by the test may require additional laboratory testing when evaluating a patient with possible respiratory tract infection. Normal [facility] Comment on above: Performed By: #### C BCA, CMP, HA1C #### [facility] ([id number]) [address], [address] [place] [address] XR CHEST 1 VWon 05-22-2024 XR CHEST 1 VW XR CHEST 1 VW Clinical history: Hypoxia. Comparisons: 12/20/2008. Findings: AP portable semiupright chest radiograph obtained 9:33 AM. Heart size and pulmonary vasculature appear within normal limits. There is some patchy subsegmental atelectasis or ill-defined consolidation in the left lung base. Small left pleural effusion not excluded. Right lung appears clear. No pneumothorax. IMPRESSION: 1. Consolidation and/or atelectasis left lower lobe with likely small left pleural effusion. Findings are nonspecific. Clinical correlation and follow-up to resolution recommended. Finalized by Joel Lees MD on 05/22/2024 10:36 AM Normal [facility] CBC AND AUTO DIFFon 05-21-20 24 Band form neutrophils/100 WBC (Bld) 2.9 % Normal [facility] Comment on above: Performed By: #### C TONY, CMP #### [facility] ([id number]) [address], [address] [place] [address] Erythrocyte distribution width (RBC) [Ratio] 13.9 % Normal 11.5-15.0 [facility] Comment on above: Performed By: #### C TONY, CMP #### [facility] ([id number]) [address] [place] [address] Hematocrit (Bld) [Volume fraction] 28.9 % Low 35-47 [facility] Comment on above: Performed By: #### C TONY, CMP #### [facility] ([id number]) [address], [address] [place] [address] Hemoglobin (Bld) [Mass/Vol] 10.2 g/dL Low 11.7-15.5 [facility] Comment on above: Performed By: #### C TONY, CMP #### [facility] ([id number]) [address], [address] [place] [address] Lymphocytes (Bld) [#/Vol] 0.8 10*3/uL Low 1.0-3.5 [facility] Comment on above: Performed By: #### C TONY, CMP #### [facility] ([id number]) [address], [address] [place] [address] Lymphocytes/100 WBC (Bld) 4.8 % Normal [facility] Comment on above: Performed By: #### C BCA, CMP #### [facility] ([id number]) [address], [address] [place] [address] MCH (RBC) [Entitic mass] 33.9 pg Normal 27-34 [facility] Comment on above: Performed By: #### C TONY, CMP #### [facility] ([id number]) [address], [address] [place] [address] MCHC (RBC) [Mass/Vol] 35.4 g/dL Normal 32-36 [facility] Comment on above: Performed By: #### C BCA, CMP #### [facility] ([id number]) [address], [address] [place] [address] MCV (RBC) [Entitic vol] 96 fL Normal 80-100 [facility] Comment on above: Performed By: #### C TONY, CMP #### [facility] ([id number]) [address], [address] [place] [address] Monocytes (Bld) [#/Vol] 0.2 10*3/uL Normal 0-0.9 [facility] Comment on above: Performed By: #### C TONY, CMP #### [facility] ([id number]) [address], [address] [place] [address] Monocytes/100 WBC (Bld) 1.0 % Normal [facility] Comment on above: Performed By: #### C TONY, CMP #### [facility] ([id number]) [address], [address] [place] [address] Neutrophils (Bld) [#/Vol] 15.0 10*3/uL High 1.5-6.6 [facility] Comment on above: Performed By: #### C TONY, CMP #### [facility] ([id number]) [address] [place] [address] Platelet mean volume (Bld) [Entitic vol] 7.7 fL Normal 7-12 [facility] Comment on above: Performed By: #### C BCA, CMP #### [facility] ([id number]) [address], [address] [place] [address] Platelets (Bld) [#/Vol] 242 10*3/uL Normal 150-450 [facility] Comment on above: Performed By: #### C BCA, CMP #### [facility] ([id number]) [address], [address] [place] [address] POLYCHROMASIA 1+ Abnormal NONE [facility] Comment on above: Performed By: #### C BCA, CMP #### [facility] ([id number]) [address], [address] [place] [address] RBC COUNT 3.02 X10E12/L Low 3.80-5.20 [facility] Comment on above: Performed By: #### C BCA, CMP #### [facility] ([id number]) [address], [address] [place] [address] SEG NEUTROPHIL 91.3 % Normal [facility] Comment on above: Performed By: #### C BCA, CMP #### [facility] ([id number]) [address], [address] [place] [address] TEARDROP 1+ Abnormal NONE [facility] Comment on above: Performed By: #### C BCA, CMP #### [facility] ([id number]) [address], [address] [place] [address] WBC (Bld) [#/Vol] 15.9 10*3/uL High 4.0-11.0 [facility] Comment on above: Performed By: #### C BCA, CMP #### [facility] ([id number]) [address], [address] [place] [address] ABSOLUTE BASOPHIL 0.0 X10E9/L Normal 0.0-0.2 [facility] Comment on above: Performed By: #### C BCA, CMP, HA1C #### [facility] ([id number]) [address], [address] [place] [address] ABSOLUTE NEUTROPHIL 9.5 X10E9/L High 1.5-6.6 [facility] Comment on above: Performed By: #### C TONY CMP, HA1C #### [facility] ([id number]) [address], [address] [place] [address] Basophils/100 WBC (Bld) 0.2 % Normal [facility] Comment on above: Performed By: #### C TONY, CMP, HA1C #### [facility] ([id number]) [address], [address] [place] [address] Eosinophils (Bld) [#/Vol] 0.0 10*3/uL Normal 0.0-0.4 [facility] Comment on above: Performed By: #### C TONY CMP, HA1C #### [facility] ([id number]) [address], [address] [place] [address] Eosinophils/100 WBC (Bld) 0.0 % Normal [facility] Comment on above: Performed By: #### C TONY CMP, HA1C #### [facility] ([id number]) [address], [address] [place] [address] Erythrocyte distribution width (RBC) [Ratio] 14.0 % Normal 11.5-15.0 [facility] Comment on above: Performed By: #### C TONY CMP, HA1C #### [facility] ([id number]) [address], [address] [place] [address] Hematocrit (Bld) [Volume fraction] 32.5 % Low 35-47 [facility] Comment on above: Performed By: #### C TONY, CMP, HA1C #### [facility] ([id number]) [address], [address] [place] [address] Hemoglobin (Bld) [Mass/Vol] 11.6 g/dL Low 11.7-15.5 [facility] Comment on above: Performed By: #### C BCA, CMP, HA1C #### [facility] ([id number]) [address], [address] [place] [address] Lymphocytes (Bld) [#/Vol] 0.7 10*3/uL Low 1.0-3.5 [facility] Comment on above: Performed By: #### C BCA, CMP, HA1C #### [facility] ([id number]) [address] [place] [address] Lymphocytes/100 WBC (Bld) 6.4 % Normal [facility] Comment on above: Performed By: #### C BCA, CMP, HA1C #### [facility] ([id number]) [address] [place] [address] MCH (RBC) [Entitic mass] 34.0 pg Normal 27-34 [facility] Comment on above: Performed By: #### C BCA, CMP, HA1C #### [facility] ([id number]) [address] [facility] [address] [place] [address] MCHC (RBC) [Mass/Vol] 35.7 g/dL Normal 32-36 [facility] Comment on above: Performed By: #### C BCA, CMP, HA1C #### [facility] ([id number]) [address], [address] [place] [address] MCV (RBC) [Entitic vol] 95 fL Normal 80-100 [facility] Comment on above: Performed By: #### C BCA, CMP, HA1C #### [facility] ([id number]) [address] [place] [address] Monocytes (Bld) [#/Vol] 0.2 10*3/uL Normal 0-0.9 [facility] Comment on above: Performed By: #### C BCA, CMP, HA1C #### [facility] ([id number]) [address], [address] [place] [address] Monocytes/100 WBC (Bld) 2.3 % Normal [facility] Comment on above: Performed By: #### C BCA, CMP, HA1C #### [facility] ([id number]) [address], [address] [place] [address] Neutrophils/100 WBC (Bld) 91.1 % Normal [facility] Comment on above: Performed By: #### C BCA, CMP, HA1C #### [facility] ([id number]) [address] [place] [address] Platelet mean volume (Bld) [Entitic vol] 7.7 fL Normal 7-12 [facility] Comment on above: Performed By: #### C BCA, CMP, HA1C #### [facility] ([id number]) [address], [address] [place] [address] Platelets (Bld) [#/Vol] 233 10*3/uL Normal 150-450 [facility] Comment on above: Performed By: #### C BCA, CMP, HA1C #### [facility] ([id number]) [address], [address] [place] [address] RBC COUNT 3.41 X10E12/L Low 3.80-5.20 [facility] Comment on above: Performed By: #### C BCA, CMP, HA1C #### [facility] ([id number]) [address] [place] [address] WBC (Bld) [#/Vol] 10.4 10*3/uL Normal 4.0-11.0 [facility] Comment on above: Performed By: #### C BCA, CMP, HA1C #### [facility] ([id number]) [address], [address] [place] [address] COMPREHENSIVE METABOLIC PANE Rasheed 05-21-2024 Albumin [Mass/Vol] 2.9 g/dL Low 3.2-5.3 [facility] Comment on above: Performed By: #### C BCA, CMP #### [facility] ([id number]) [address], [address] [place] [address] ALP [Catalytic activity/Vol] 86 U/L Normal 39-130 [facility] Comment on above: Performed By: #### C BCA, CMP #### [facility] ([id number]) [address], [address] [place] [address] ALT [Catalytic activity/Vol] 11 U/L Normal 0-31 [facility] Comment on above: Performed By: #### C BCA, CMP #### [facility] ([id number]) [address], [address] [place] [address] Anion gap [Moles/Vol] 11 mmol/L Normal 5-15 [facility] Comment on above: Performed By: #### C BCA, CMP #### [facility] ([id number]) [address], [address] [place] [address] AST [Catalytic activity/Vol] 19 U/L Normal 0-41 [facility] Comment on above: Performed By: #### C BCA, CMP #### [facility] ([id number]) [address], [address] [place] [address] Bilirubin [Mass/Vol] 0.9 mg/dL Normal 0.3-1.2 [facility] Comment on above: Performed By: #### C BCA, CMP #### [facility] ([id number]) [address], [address] [place] [address] Calcium [Mass/Vol] 7.4 mg/dL Low 8.5-10.5 [facility] Comment on above: Performed By: #### C BCA, CMP #### [facility] ([id number]) [address], [address] [place] [address] Chloride [Moles/Vol] 106 mmol/L Normal 98-109 [facility] Comment on above: Performed By: #### C BCA, CMP #### [facility] ([id number]) [address], [address] [place] [address] CO2 [Moles/Vol] 20 mmol/L Low 22-32 [facility] Comment on above: Performed By: #### C BCA, CMP #### [facility] ([id number]) [address] [place] [address] Creatinine [Mass/Vol] 0.46 mg/dL Normal 0.40-1.00 [facility] Comment on above: Result Comment: METH OD TRACEABLE TO IDMS STANDARD Performed By: #### C BCA, CMP #### [facility] ([id number]) [address], [address] [place] [address] eGFR (CKD-EPI) NON-RACE DEPENDENT >90 Normal >59 [facility] Comment on above: Result Comment: Reported eGFR is based on the CKD-EPI 2020 equation that does not use a race coefficient. Performed By: #### C BCA, CMP #### [facility] ([id number]) [address], [address] [place] [address] Glucose [Mass/Vol] 107 mg/dL High 65-99 [facility] Comment on above: Performed By: #### C BCA, CMP #### [facility] ([id number]) [address], [address] [place] [address] Potassium [Moles/Vol] 4.3 mmol/L Normal 3.5-5.0 [facility] Comment on above: Performed By: #### C BCA, CMP #### [facility] ([id number]) [address], [address] [place] [address] Protein [Mass/Vol] 5.5 g/dL Low 6.0-8.0 [facility] Comment on above: Performed By: #### C BCA, CMP #### [facility] ([id number]) [address], [address] [place] [address] Sodium [Moles/Vol] 137 mmol/L Normal 134-146 [facility] Comment on above: Performed By: #### C BCA, CMP #### [facility] ([id number]) [address], [address] [place] [address] Urea nitrogen [Mass/Vol] 8 mg/dL Normal 5-23 [facility] Comment on above: Performed By: #### C BCA, CMP #### [facility] ([id number]) [address], [address] [place] [address] Albumin [Mass/Vol] 3.2 g/dL Normal 3.2-5.3 [facility] Comment on above: Performed By: #### C BCA, CMP, HA1C #### [facility] ([id number]) [address], [address] [place] [address] ALP [Catalytic activity/Vol] 97 U/L Normal 39-130 [facility] Comment on above: Performed By: #### C BCA, CMP, HA1C #### [facility] ([id number]) [address], [address] [place] [address] ALT [Catalytic activity/Vol] 11 U/L Normal 0-31 [facility] Comment on above: Performed By: #### C BCA, CMP, HA1C #### [facility] ([id number]) [address] [place] [address] Anion gap [Moles/Vol] 12 mmol/L Normal 5-15 [facility] Comment on above: Performed By: #### C BCA, CMP, HA1C #### [facility] ([id number]) [address], [address] [place] [address] AST [Catalytic activity/Vol] 21 U/L Normal 0-41 [facility] Comment on above: Performed By: #### C BCA, CMP, HA1C #### [facility] ([id number]) [address] [place] [address] Bilirubin [Mass/Vol] 0.6 mg/dL Normal 0.3-1.2 [facility] Comment on above: Performed By: #### C BCA, CMP, HA1C #### [facility] ([id number]) [address] [place] [address] Calcium [Mass/Vol] 8.3 mg/dL Low 8.5-10.5 [facility] Comment on above: Performed By: #### C BCA, CMP, HA1C #### [facility] ([id number]) [address], [address] [place] [address] Chloride [Moles/Vol] 106 mmol/L Normal 98-109 [facility] Comment on above: Performed By: #### C BCA, CMP, HA1C #### [facility] ([id number]) [address], [address] [place] [address] CO2 [Moles/Vol] 19 mmol/L Low 22-32 [facility] Comment on above: Performed By: #### C BCA, CMP, HA1C #### [facility] ([id number]) [address] [place] [address] Creatinine [Mass/Vol] 0.39 mg/dL Low 0.40-1.00 [facility] Comment on above: Result Comment: METH OD TRACEABLE TO IDMS STANDARD Performed By: #### C BCA, CMP, HA1C #### [facility] ([id number]) [address] [place] [address] eGFR (CKD-EPI) NON-RACE DEPENDENT >90 Normal >59 [facility] Comment on above: Result Comment: Reported eGFR is based on the CKD-EPI 2020 equation that does not use a race coefficient. Performed By: #### C BCA, CMP, HA1C #### [facility] ([id number]) [address], [address] [place] [address] Glucose [Mass/Vol] 131 mg/dL High 65-99 [facility] Comment on above: Performed By: #### C BCA, CMP, HA1C #### [facility] ([id number]) [address] [place] [address] Potassium [Moles/Vol] 4.0 mmol/L Normal 3.5-5.0 [facility] Comment on above: Performed By: #### C BCA, CMP, HA1C #### [facility] ([id number]) [address] [place] [address] Protein [Mass/Vol] 6.1 g/dL Normal 6.0-8.0 [facility] Comment on above: Performed By: #### C BCA, CMP, HA1C #### [facility] ([id number]) [address] [place] [address] Sodium [Moles/Vol] 137 mmol/L Normal 134-146 [facility] Comment on above: Performed By: #### C BCA, CMP, HA1C #### [facility] ([id number]) [address], [address] [place] [address] Urea nitrogen [Mass/Vol] 7 mg/dL Normal 5-23 [facility] Comment on above: Performed By: #### C BCA, CMP, HA1C #### [facility] ([id number]) [address] [address] [place] [address] DRUG SCREEN, URINEon 024 AMPHETAMINE/METHAMP Negative Normal NEG [facility] Comment on above: Result Comment: AMPH /METH screening cut off = 1000 ng/mL Performed By: #### D ROBBINS #### [facility] ([id number]) [address] [place] [address] BARBITURATES Negative Normal NEG [facility] Comment on above: Result Comment: Nelsy iturates screening cut off value = 200 ng/mL Performed By: #### D ROBBINS #### [facility] ([id number]) [address] [place] [address] BENZODIAZEPINES Negative Normal NEG [facility] Comment on above: Result Comment: Nathen odiazepines screening cut off value = 200 ng/mL Performed By: #### D ROBBINS #### [facility] ([id number]) [address], [address] [place] [address] CANNABINOIDS Negative Normal NEG [facility] Comment on above: Result Comment: Wicho abinoids/THC screening cut off value = 50 ng/mL Performed By: #### D ROBBINS #### [facility] ([id number]) [address] [place] [address] COCAINE METABOLITE Negative Normal NEG [facility] Comment on above: Result Comment: Coca ine screening cut off value = 300 ng/mL Performed By: #### D ROBBINS #### [facility] ([id number]) [address], [address] [place] [address] ECSTASY Negative Normal NEG [facility] Comment on above: Result Comment: Ecst asy screening cut off value = 500 ng/mL This report is intended for use in clinical monitoring or management of patients. Performed By: #### D ROBBINS #### [facility] ([id number]) [address], [address] [place] [address] METHADONE Negative Normal NEG [facility] Comment on above: Result Comment: Meth adone screening cut off value = 300 ng/mL. Performed By: #### D ROBBINS #### [facility] ([id number]) [address] [facility], [address] [place] [address] OPIATES Negative Normal NEG [facility] Comment on above: Result Comment: Opia monik screening cut off value = 300 ng/mL NOTE: This test is used for the detection of codeine, hydrocodone (>1000 ng/mL), morphine and hydromorphone (>900 ng/mL) in urine. Performed By: #### D ROBBINS #### [facility] ([id number]) [address] [place] [address], [address] [address] OXYCODONE Negative Normal NEG [facility] Comment on above: Result Comment: Oxyc odone screening cut off value = 300 ng/mL NOTE: This test is used for the detection of oxycodone and oxymorphone in urine. Performed By: #### D ROBBINS #### [facility] ([id number]) [address] [place] [address] PHENCYCLIDINE Negative Normal NEG [facility] Comment on above: Result Comment: Phen cyclidine screening cut off value = 25 ng/mL Performed By: #### D ROBBINS #### [facility] ([id number]) [address] [place] [address] HGB A1C (GLYCO-HGB)on 2023 Glucose [Mass/Vol] 77 mg/dL Normal [facility] Comment on above: Performed By: #### C BCA, CMP, HA1C #### [facility] ([id number]) [facility] [address] [address] HbA1c (Bld) [Mass fraction] 4.3 % Low 4.4-5.6 [facility] Comment on above: Result Comment: NOTE ADA Guidelines Result HgbA1c Normal : less than 5.7 % Prediabetes : 5.7 % to 6.4 % Diabetes : > 6.4 % Use with caution in patients with abnormal hemoglobin variants as the half-life of red blood cells and in vivo glycation rates are affected. Performed By: #### C BCA, CMP, HA1C #### [facility] ([id number]) [address], [address] [place] [address] T. pallidum IgG+IgM IA Ql (S )on 05-21-2024 Syphilis Total <0.2 Normal 0.0-0.8 [facility] Comment on above: Result Comment: NON REACTIVE No serologic evidence of infection to Treponema pallidum (syphilis). Repeat testing may be considered in patients with suspected acute or primary syphilis in 2 to 4 weeks. Performed By: #### 4 7236-5 #### [facility] ([id number]) [address] [place] [address] US OB FOLLOW UP TRANSABDOMIN AL APPROACHon [...] IS JUNE 12, 2024 ELECTRONICALLY SIGNED BY: Dg Latham DO Normal Not Available US OB < 14 [...] 01-21-2022 CULTURE, URINE, ROUTINE SEE NOTE Normal [facility] Specialist Comment on above: Order Comment: [facility] Testing performed at: FRM Study Course, [facility], [address] [facility], [address] [place] [address], [phone], Chemical Etch Operator: Finesse Santos MD [facility] Collection Date/Time: [facility] Results Received Date/Time: [facility] Reported Date/Time: Result Comment: CULT URE, URINE, ROUTINE Micro Number: [id number] Test Status: Final Specimen Source: Urine Specimen Quality: Adequate Result: No Growth Performed By: #### 6 [id number] #### [facility] [address] [place] [address] Basic Metabolic Panelon 12-21 Anion gap [Moles/Vol] 12 mmol/L Normal 12-20 [facility] Comment on above: Result Comment: Effe ctive 11/25/2019 reference range changed. Performed By: #### 1 0165F, TSH reflex FT4, BMP #### [facility] [address] [place] [address] eGFRAA 114 mL/min/1.73m2 Normal > OR = 60 [facility] Comment on above: Performed By: #### 1 0165F, TSH reflex FT4, BMP #### [facility] [address] [place] [address] Order Comment: [facility] performed at: [facility], [address] , [address] [place] [address], [phone], Chemical Etch Operator: Finesse Santos MD [facility] Collection Date/Time: [facility] Results Received Date/Time: [facility] Reported Date/Time: eGFRNAA 94 mL/min/1.73m2 Normal > OR = 60 [facility] Comment on above: Performed By: #### 1 0165F, TSH reflex FT4, BMP #### [facility] [address] [place] [address] Order Comment: [facility] performed at: [facility] Study Course, [facility], [address] [facility], [address] [place] [address], [address] [place] [address], Chemical Etch Operator: Finesse Santos MD [facility] Collection Date/Time: [facility] Results Received Date/Time: [facility] Reported Date/Time: Q - BASIC METABOLIC PANEL W/ EGFRon 12-31-2021 BUN/CREA 14 NOT APPLICABLE Normal 6-22 [facility] Comment on above: Order Comment: [facility] performed at: FRM Study Course, [facility], [address] [facility], [address] [place] [address], [address] [place] [address], Chemical Etch Operator: Finesse Santos MD [facility] Collection Date/Time: [facility] Results Received Date/Time: [facility] Reported Date/Time: Performed By: #### 1 0165F, TSH reflex FT4, BMP #### [facility] [address] [place] [address] Calcium [Mass/Vol] 9.3 mg/dL Normal 8.9-10.4 [facility] Comment on above: Order Comment: [facility] performed at: FRM Study Course, [facility], [address] , [address] [place] [address], [phone], Chemical Etch Operator: Finesse Santos MD [facility] Collection Date/Time: [facility] Results Received Date/Time: [facility] Reported Date/Time: Performed By: #### 1 0165F, TSH reflex FT4, BMP #### [facility] [address] [place] [address] Chloride [Moles/Vol] 107 mmol/L Normal 98-110 [facility] Specialist Comment on above: Order Comment: [facility] performed at: FRM Study Course, [facility], [address] [facility], [address] [place] [address], [address] [place] [address], Chemical Etch Operator: Finesse Santos MD [facility] Collection Date/Time: [facility] Results Received Date/Time: [facility] Reported Date/Time: Performed By: #### 1 0165F, TSH reflex FT4, BMP #### [facility] [address] [place] [address] CO2 [Moles/Vol] 23 mmol/L Normal 20-32 [facility] Specialist Comment on above: Order Comment: [facility] performed at: FRM Study Course, [facility], [address] [place] [address], [address] [place] [address], [address] [place] [address], Chemical Etch Operator: Finesse Santos MD [facility] Collection Date/Time: [facility] Results Received Date/Time: [facility] Reported Date/Time: Performed By: #### 1 0165F, TSH reflex FT4, BMP #### [facility] [address] [place] [address] Creatinine [Mass/Vol] 0.79 mg/dL Normal 0.50-1.00 [facility] Comment on above: Order Comment: [facility] performed at: FRM Study Course, [facility], [address] [place] [address], [address] [place] [address], [address] [place] [address], Chemical Etch Operator: Finesse Santos MD [facility] Collection Date/Time: [facility] Results Received Date/Time: [facility] Reported Date/Time: Performed By: #### 1 0165F, TSH reflex FT4, BMP #### [facility] [address] [place] [address] Glucose [Mass/Vol] 81 mg/dL Normal 65-99 [facility] Comment on above: Order Comment: [facility] performed at: QPT, [facility], [address] [place] [address], [address] [place] [address], [address] [place] [address], Chemical Etch Operator: Finesse Santos MD [facility] Collection Date/Time: [facility] Results Received Date/Time: [facility] Reported Date/Time: Result Comment: Fasting reference interval Performed By: #### 1 0165F, TSH reflex FT4, BMP #### [facility] [address] [place] [address] Potassium [Moles/Vol] 4.5 mmol/L Normal 3.8-5.1 [facility] Coordinator Comment on above: Order Comment: [facility] performed at: FRM Study Course, [facility], [address] [place] [address], [address] [place] [address], [address] [place] [address], Chemical Etch Operator: Finesse Santos MD [facility] Collection Date/Time: [facility] Results Received Date/Time: [facility] Reported Date/Time: Performed By: #### 1 0165F, TSH reflex FT4, BMP #### [facility] Default [address] [place] [address] Sodium [Moles/Vol] 137 mmol/L Normal 135-146 Kristine lara [facility] Comment on above: Order Comment: [facility] performed at: FRM Study Course, [facility], [address] [place] [address], [address] [place] [address], [phone], Chemical Etch Operator: Finesse Santos MD [facility] Collection Date/Time: [facility] Results Received Date/Time: [facility] Reported Date/Time: Performed By: #### 1 0165F, TSH reflex FT4, BMP #### [facility] [address] [place] [address] Urea nitrogen [Mass/Vol] 11 mg/dL Normal 7-20 [facility] Coordinator Comment on above: Order Comment: [facility] performed at: FRM Study Course, [facility], [address] [place] [address], [address] [place] [address], [phone], Chemical Etch Operator: Finesse Santos MD [facility] Collection Date/Time: [facility] Results Received Date/Time: [facility] Reported Date/Time: Performed By: #### 1 0165F, TSH reflex FT4, BMP #### [facility] [address] [place] [address] TSH w/ Reflex to Free T4on 0 12-31-2021 TSH W/REFLEX TO FT4 1.03 mIU/L Normal [facility] Comment on above: Order Comment: [facility] performed at: FRM Study Course, [facility], [address] [place] [address], [phone], Chemical Etch Operator: Finesse Santos MD [facility] Collection Date/Time: [facility] Results Received Date/Time: [facility] Reported Date/Time: Result Comment: Refe rence Range 1-19 Years 0.50-4.30 Ranges First trimester 0.26-2.66 Second trimester 0.55-2.73 Third trimester 0.43-2.91 Performed By: #### 1 0165F, TSH reflex FT4, BMP #### [facility] [address] [place] [id number] Q - CULTURE,URINE,ROUTINEon 12-27-2021 CULTURE, URINE, ROUTINE SEE NOTE Abnormal [facility] Comment on above: Order Comment: [facility] performed at: [facility], [address] [place] [address], [address] [place] [address], [phone], Chemical Etch Operator: Finesse Santos MD [facility] Collection Date/Time: [id number] [facility] Results Received Date/Time: [facility] Reported Date/Time: FASTING: NO Result Comment: CULT URE, URINE, ROUTINE Micro Number: [id number] Test Status: Final Specimen Source: Urine Specimen [...] 6 304R #### [facility] Default [address] [place] [address] Covid-19 PCR (CVDTB)on Covid-19 PCR DETECTED Abnormal NOT DETECTED [facility] Comment on above: Result Comment: This test is not yet approved or cleared by the [place] FDA. When there are no FDA-approved or cleared tests available, and other criteria are met, FDA can make tests available under an emergency access mechanism called an Emergency Use Authorization (EUA). The EUA for this test is supported by the [employer] of Health and Human Service's (HHS's) declaration [...] longer be used). Performed By: #### C VDTBH #### [facility] [address] [address] Mary Jo Medina Encounters Encounter Date Encounter Type Care Provider Facility Start: 05-29-2024 End: 05-29-2024 ambulatory BRIGHT L FLORO Not Available Start: 05-22-2024 End: 05-22-2024 ambulatory BRIGHT FLORO [facility] Start: 05-21-2024 End: 05-21-2024 Evaluation and management of inpatient ALTAGRACIA ELIZABETH [facility] Start: 05-21-2024 End: 05-24-2024 Evaluation and management of inpatient VIRGINIA FABIAN [facility] Start: 05-13-2024 End: 05-13-2024 ambulatory BRIGHT L FLORO Not Available Start: 05-06-2024 End: 05-06-2024 ambulatory BRIGHT L FLORO Not Available Start: 04-22-2024 End: 04-22-2024 ambulatory BRIGHT L FLORO Not Available Start: 04-08-2024 End: 04-08-2024 ambulatory BRIGHT L FLORO Not Available Start: 03-21-2024 End: 03-21-2024 ambulatory BRIGHT L FLORO Not Available Start: 02-21-2024 End: 02-21-2024 ambulatory BRIGHT L FLORO Not Available Start: 02-16-2024 End: 02-16-2024 ambulatory [facility] Start: 02-12-2024 End: 02-12-2024 ambulatory BRIGHT L [...] OB Start: 11-30-2023 End: 11-30-2023 ambulatory BRIGHT BURTONO Not Available Start: 11-01-2023 End: 11-01-2023 ambulatory BRIGHT Sharda FLORO Not Available Start: 11-01-2023 End: 11-01-2023 ambulatory BRIGHT Sharda FLORO Not Available Start: 10-11-2023 End: 10-11-2023 ambulatory BRIGHT BURTONO Not Available Start: 02-26-2021 End: 02-26-2021 Patient encounter procedure [facility] Facility: Plan of Treatment Date Care Activity Detail Author Start: 05-19-2024 Influenza vaccination Influenza Vacc ine (#1) [facility] Comment on above: Postponed from 07/21 (Patient Refused) Start: 12-28-2023 End: 12-28-2023 Patient encounter procedure 12/28/2023 4:30 PM EST Routine [facility] [address] [place] [address] Bright Viveros CN [address] [place] [address] Arrived [facility] Comment on above: Arrived Immunizations Immunization Date Immunization Notes Care Provider Fa cili 07-08-2020 meningococcal oligosaccharide (groups A, C, Y and W-135) diphtheria toxoid conjugate vaccine (MCV4O) Bright Mineo [facility] Work Phone: [facility] 07-20-2018 human papilloma viru s vaccine, quadrivalent Bright Floro [facility] Work Phone: [facility] 03-14-2018 human papilloma viru s vaccine, quadrivalent Bright Floro CN Work Phone: [facility] 01-09-2018 human papilloma viru s vaccine, quadrivalent Bright Floro CN Work Phone: [facility] 06-14-2017 meningococcal polysaccharide (groups A, C, Y and W-135) diphtheria toxoid conjugate vaccine (MCV4P) Bright [facility] Work Phone: [facility] 06-14-2017 meningococcal polysaccharide vaccine (MPSV4) Bright Floro [facility] Work Phone: [facility] 07-08-2014 meningococcal polysaccharide (groups A, C, Y and W-135) diphtheria toxoid conjugate vaccine (MCV4P) [facility] Work Phone: [facility] 07-08-2014 tetanus toxoid, redu fabricio diphtheria toxoid, and acellular pertussis vaccine, adsorbed [facility] Work Phone: [facility] 04-22-2013 varicella virus vaccine Ganado rocío Mineo [facility] Work Phone: [facility] 02-26-2008 diphtheria, tetanus toxoids and acellular pertussis vaccine Bright [facility] Work Phone: [facility] 02-26-2008 measles, mumps and r ubella virus vaccine [facility] Work Phone: [facility] 02-26-2008 poliovirus vaccine, inactivated [facility] Work Phone: [facility] 04-12-2004 diphtheria, tetanus toxoids and acellular pertussis vaccine, unspecified formulation [facility] Work Phone: [facility] 01-13-2004 measles, mumps and r ubella virus vaccine Bright Mineo CN Work Phone: [facility] 01-13-2004 varicella virus vaccine Ana M rocío [facility] Work Phone: [facility] 10-14-2003 haemophilus influenz ae type b vaccine, HbOC conjugate Bright [facility] Work Phone: [facility] 10-14-2003 pneumococcal conjuga te vaccine, 7 valent Bright [facility] Work Phone: [facility] 10-14-2003 poliovirus vaccine, inactivated Bright [facility] Work Phone: [facility] 07-16-2003 hepatitis B vaccine, pediatric or pediatric/adolescent dosage Bright [facility] Work Phone: [facility] 05-27-2003 diphtheria, tetanus toxoids and acellular pertussis vaccine, unspecified formulation Bright Floro CNM Work Phone: [facility] 05-27-2003 haemophilus influenz ae type b vaccine, HbOC conjugate Bright Floro CNM Work Phone: [facility] 05-27-2003 pneumococcal conjuga te vaccine, 7 valent Bright Floro CNM Work Phone: [facility] 02-17-2003 diphtheria, tetanus toxoids and acellular pertussis vaccine, unspecified formulation Bright Floro CNM Work Phone: [facility] 02-17-2003 haemophilus influenz ae type b vaccine, HbOC conjugate Bright Floro CNM Work Phone: [facility] 02-17-2003 pneumococcal conjuga te vaccine, 7 valent Bright Floro CNM Work Phone: [facility] 02-17-2003 poliovirus vaccine, inactivated Bright Floro CNM Work Phone: [facility] 2002 diphtheria, tetanus toxoids and acellular pertussis vaccine, unspecified formulation Bright Floro CNM Work Phone: [facility] 2002 haemophilus influenz ae type b vaccine, HbOC conjugate Bright Floro CNM Work Phone: [facility] 2002 pneumococcal conjuga te vaccine, 7 valent Bright Floro CNM Work Phone: [facility] 2002 poliovirus vaccine, inactivated Bright Floro CNM Work Phone: [facility] 2002 hepatitis B vaccine, pediatric or pediatric/adolescent dosage Bright Floro CNM Work Phone: [facility] 2002 hepatitis B vaccine, pediatric or pediatric/adolescent dosage Bright Floro CNM Work Phone: [facility] Payers Date Payer Category Payer Medicaid [id number] 2019 Private Health Insurance [facility] [id number] 2019-Present [address] [address] [place] [address] [id number] 2002 Unknown [id number] 2.16.840.1.863943.3.579.2. 593 2002 Unknown [id number] 2.16.840.1.344176.3.579.2. 1286 2002 Unknown [id number] 2.16.840.1.914753.3.579.2. 1286 2002 Unknown [id number] 2.16.840.1.629674.3.579.2. 1286 2002 Unknown [id number] 2.16.840.1.215949.3.579.2. 1286 2002 Unknown [id number] 2.16.840.1.069447.3.579.2. 1259 2002 Unknown [id number] 2.16.840.1.323881.3.579.2. 1259 2002 Unknown [id number] 2.16.840.1.269534.3.579.2. 1259 2002 Unknown [id number] 2.16.840.1.247960.3.579.2. 1259 2002 Unknown [id number] 2.16.840.1.244135.3.579.2. 1259 2002 Unknown [id number] 2.16.840.1.258016.3.579.2. 1259 2002 Unknown [id number] 2.16.840.1.043572.3.579.2. 1259 2002 Unknown [id number] 2.16.840.1.922124.3.579.2. 1259 2002 Unknown [id number] 2.16.840.1.211923.3.579.2. 1259 2002 Unknown [id number] 2.16.840.1.588907.3.579.2. 9 2002 Unknown [id number] 2.16.840.1.401124.3.579.2. 1259 2002 Unknown [id number] 2.16.840.1.271329.3.579.2. 9 2002 Unknown [id number] 2.16.840.1.615074.3.579.2. 1259 2002 Unknown [id number] 2.16.840.1.129240.3.579.2. 9 2002 Unknown [id number] 2.16.840.1.692482.3.579.2. 1259 2002 Unknown [id number] 2.16.840.1.963087.3.579.2. 9 2002 Unknown [id number] 2.16.840.1.792803.3.579.2. 1259 1959 Unknown [id number] Social History Date Type Detail Facility Start: 10-11-2023 Tobacco smoking stat [facility] Smokes tobacco daily [facility] History [...] DATE CREATED AUTHOR AUTHOR'S ORGANIZ ATION 01/23/2022 [facility] dical Specialist DATE CREATED AUTHOR AUTHOR'S ORGANIZ ATION 02/17/2024 [facility] DATE CREATED AUTHOR AUTHOR'S ORGANIZ ATION 05/25/2024 [facility] DATE CREATED AUTHOR AUTHOR'S ORGANIZ ATION 06/05/2024 [facility] dical Specialists EPIC Care Teams (unrecognized sec tion and content) Terminologist Relationship Specialty Start Date End Date Hortencia Morrison MD [address] [place] [address] PCP - General Family Medicine 05/24/23 Bright Viveros CNM [address] [place] [address] Obstetrics and Gynecology 05/24/23 FOR RECORDS PERTAINING [...] BE BASED ON THE PRIMARY CLINICAL RECORDS. [facility] [employer] provides no warranty or guarantee of the accuracy or completeness of information in this document.
--- NOTE | 2024-06-13 01:52 | ED_ITS ---
HPI - Abdominal Pain General Chief Complaint: Abdominal Pain Stated Complaint: flank pain Time Seen by Provider: 06/13/24 01:30 Source: patient Mode of arrival: walk-in Limitations: no limitations History of Present Illness HPI narrative: 23-year-old female presents to the emergency department for abdominal pain. It is now resolved. She has been having some intermittent right upper quadrant abdominal pain and for this reason she had an outpatient gallbladder ultrasound yesterday morning. It shows cholelithiasis without acute cholecystitis. She states when the pain comes on it goes away when she vomits. She vomited and now the pain is gone away completely. She has not seen a surgeon about this issue and was not referred to 1. She is 3 weeks , , she is breast- feeding Related Data Home Medications ?Medication ?Instructions ?Recorded ?Confirmed vitamin with calcium tab 06/13/24 no.72-iron 27 mg-folic acid 1 mg tablet ( Vitamins Plus Low Iron) sertraline 25 mg tablet mg 06/13/24 Previous Rx's ?Medication ?Instructions ?Recorded ondansetron 4 mg disintegrating 4 mg PO Q6H PRN nausea and 06/13/24 tablet vomiting #20 tabs Allergies Allergy/AdvReac Type Severity Reaction Status Date / Time Penicillins Allergy Severe Hives Verified 06/13/24 01:39 Review of Systems ROS Narrative A ten point review of systems is negative except as noted above. Exam Narrative Exam Narrative: Nurses note and vital signs reviewed and patient is not hypoxic. General: The patient appears well and in no apparent distress. Patient is resting comfortably on cart. Skin: Warm, dry, pallor noted. There is no rash noted. Head: Normocephalic, atraumatic Eye: Normal conjunctiva, no drainage Ears, Nose, Mouth, and Throat: oral mucosa is moist. Nares patent. Cardiovascular: Regular Rate and Rhythm Respiratory: Patient is in no distress, no accessory muscle use, lungs are clear to auscultation, no wheezing, rales or rhonchi Back: non-tender GI: Soft and nontender including the right upper quadrant Musculoskeletal: The patient has no evidence of calf tenderness, no pitting edema, symmetrical pulses noted bilaterally Neurological: A&O, normal speech Psychiatric: Cooperative Constitutional Vital Signs, click to edit/add: Last Vital Signs Temp 97.6 F 06/13/24 01:33 Pulse 88 07/25/24 01:33 Resp 16 06/13/24 01:33 BP 123/80 06/13/24 01:33 Pulse Ox 97 06/13/24 01:33 Course Vital Signs Vital signs: Vital Signs Temperature 97.6 F 06/13/24 01:33 Pulse Rate 88 06/13/24 01:33 Respiratory Rate 16 06/13/24 01:33 Blood Pressure 123/80 06/13/24 01:33 Pulse Oximetry 97 06/13/24 01:33 Temperature 97.6 F 06/13/24 01:33 Pulse Rate 88 06/13/24 01:33 Respiratory Rate 16 06/13/24 01:33 Blood Pressure 123/80 06/13/24 01:33 Pulse Oximetry 97 06/13/24 01:33 MDM - Abdominal Pain MDM Narrative Medical decision making narrative: She has no symptoms. I have no clinical suspicion of acute cholecystitis or pancreatitis. She is being referred to general surgeon. Because she is breast- feeding we will avoid narcotics. She was prescribed Zofran and was advised Tylenol. Treatment diagnosis and follow-up were discussed with the patient and her mother. Differential Diagnosis Differential diagnosis: Likely abdominal pain, constipation, gastroenteritis and pancreatitis Discharge Plan Discharge Stand Alone Forms: Portal Instructions Chief Complaint: Abdominal Pain Clinical Impression: Biliary colic, Cholelithiasis Patient Disposition: Home, Self-Care Time of Disposition Decision: 01:50 Condition: Good Mode of Transportation: Private Vehicle Prescriptions / Home Meds: New ondansetron 4 mg tablet,disintegrating 4 mg PO Q6H PRN (Reason: nausea and vomiting) Qty: 20 0RF No Action sertraline 25 mg tablet Vitamin Plus Low Iron 27 mg iron- 1 mg tablet Print Language: Citizen Of [place] Instructions: Biliary Colic (ED), Gallstones (ED), Laparoscopic Cholecystectomy (DC) Referrals: JAELYN MORRISON [Primary Care Provider] - 1 week Bandar Monterroso MD [Physician] - 1 week
--- NOTE | 2024-06-13 01:56 | PC.NURSE ---
Pt presents to ER for RUQ pain that has presented numerous times in the past Pt states when the pain comes on it is extreme but only last's until she throws up and then is completely gone Pt states she has been seen for this occurrence previously at [facility] and had RUQ ultrasound done yesterday This nurse was able to see the results on pt's mychart which stated cholelithiasis At this time pt has zero pain and denies nausea Pt states she was directed by the last Doctor she saw to go to the ER the next time this occurs No testing or medications were given while here just education from this nurse as well as Dr. Morton and a recommended follow up with Dr. Monterroso as well as sending through a script for cassie This was explained to pt thoroughly along with what to expect throughout the next course of time until she is able to meet with a surgeon Pt and her mother verbalized understanding and denied any other needs or questions from ER staff
== END 2024-06-13 02:03 | disposition home or self-care (01) ==
PROVIDERS: Emergency Provider Emergency Medicine; PCP Family Medicine
DX: O99.63 Diseases of the digestive system complicating the puerperium (principal); K80.20 Calculus of gallbladder without cholecystitis without obstruction
CPT/HCPCS: 99283